=== PATIENT | female | born 1970 | race Caucasian/White ===

== ENCOUNTER → 2020-10-02 14:23 | Outpatient (BNVA) | payer MEDICAID, SELFPAY | PROVIDERS: Family Provider Family Medicine; PCP Family Medicine; Referring Provider Family Medicine; Visit Provider Podiatrist Foot & Ankle Surgery | DX: M79.672 Pain in left foot (principal); M79.671 Pain in right foot; M77.32 Calcaneal spur, left foot; M77.31 Calcaneal spur, right foot; M21.42 Flat foot [pes planus] (acquired), left foot | CPT/HCPCS: 73630 ==

== ENCOUNTER 2020-11-09 14:04 | Outpatient (CLI) | payer MEDICAID, SELFPAY | END 2020-11-09 14:05 | disposition home or self-care (01) | LOC: SPT 14:05 | PROVIDERS: Family Provider Family Medicine; PCP Family Medicine; Visit Provider Podiatrist Foot & Ankle Surgery | DX: Z46.89 Encounter for fitting and adjustment of other specified devices (principal); M72.2 Plantar fascial fibromatosis | CPT/HCPCS: 97760; L4397 ==

== ENCOUNTER 2021-01-18 17:11 | Outpatient (CLI) | payer MEDICAID, SELFPAY ==
--- NOTE | 2021-01-18 17:48 | USCV_ITS ---
Rosy Mims Age: 50 Gender: F : 1970 Exam Date: 01/18/2021 18:00 Ordering Phys: Lien Rodriguez Technologist: Exam Location: [facility] [place] Indication: RT LEG PAIN HISTORY: Lower extremity swelling. PROCEDURES: Venous duplex imaging was performed in only the right lower extremity. The following venous structures were evaluated: common femoral vein, profunda vein, proximal portion of the greater saphenous vein, superficial femoral vein, and the popliteal vein. In addition, the posterior tibial and peroneal trunk were evaluated. On the right side, the common femoral, superficial femoral, profunda femoral, popliteal, posterior tibial, greater saphenous veins and the peroneal trunk were identified and interrogated in the standard fashion. These veins were found to be easily compressible with spontaneous blood flow. No evidence of insufficiency or thrombus noted. FINDINGS: Normal 2-D Doppler and augmentation and compressibility throughout the lower extremity venous structures. Additional imaging through the proximal calf veins also reveals no thrombus. Limited evaluation of the greater saphenous vein is patent with no thrombus.. CONCLUSIONS No evidence of right lower extremity DVT. Rolando Ortiz MD (Electronically Signed) Final Date: 19 Jan 2021 12:31 S
== END 2021-01-18 17:12 | disposition home or self-care (01) ==
LOC: RAD 17:12
PROVIDERS: PCP Family Medicine; Visit Provider Registered Nurse
DX: Z91.81 History of falling (principal); M79.661 Pain in right lower leg; M79.89 Other specified soft tissue disorders; R23.3 Spontaneous ecchymoses
CPT/HCPCS: 93971

== ENCOUNTER 2021-01-19 13:22 | Outpatient (CLI) | payer MEDICAID, SELFPAY ==
--- NOTE | 2021-01-19 13:34 | XRR_ITS ---
PROCEDURE INFORMATION: Exam: XR Right Hip Exam date and time: 01/19/2021 2:07 PM Age: 50 years old Clinical indication: Pain and injury or trauma; Fall; Blunt trauma (contusions or hematomas); Hip pain; Right hip; Injury date: 1.5 weeks ago; Additional info: HX of falling/pain swelling of R lower leg/r hip pain TECHNIQUE: Imaging protocol: XR Right hip. Views: 1 view hip with pelvis when performed. COMPARISON: CT abdomen pelvis wo con [id number] 07/12/2018 3:21 AM FINDINGS: Bones/joints: Unremarkable. No acute fracture. Soft tissues: Unremarkable. XR/XR hip RT 2-3V wo/w pel* [id number] IMPRESSION: No acute findings.
--- NOTE | 2021-01-19 13:34 | XRR_ITS ---
PROCEDURE INFORMATION: Exam: XR Right Femur Exam date and time: 01/19/2021 2:07 PM Age: 50 years old Clinical indication: Pain and injury or trauma; Fall; Blunt trauma; Thigh or upper leg; Right; Injury date: 1.5 weeks ago; Additional info: HX of falling/pain swelling of R lower leg TECHNIQUE: Imaging protocol: XR Right femur. Views: 2 views. COMPARISON: MRI Knee w/o RIGHT* [id number] 07/02/2019 5:45 PM FINDINGS: Bones/joints: Unremarkable. No acute fracture. Soft tissues: Unremarkable. XR/XR femur RT min 2V* [id number] IMPRESSION: No acute findings.
== END 2021-01-19 13:23 | disposition home or self-care (01) ==
PROVIDERS: PCP Family Medicine; Visit Provider Registered Nurse
DX: Z91.81 History of falling (principal); M79.89 Other specified soft tissue disorders; M79.661 Pain in right lower leg; R23.3 Spontaneous ecchymoses; M25.551 Pain in right hip
CPT/HCPCS: 73502; 73552

== ENCOUNTER → 2021-11-02 14:52 | Outpatient (BNVA) | payer MEDICAID, SELFPAY | PROVIDERS: PCP Family Medicine; Visit Provider Dermatology | DX: R21 Rash and other nonspecific skin eruption (principal); Z79.899 Other long term (current) drug therapy | CPT/HCPCS: 87070; 87077; 87186 ==

== ENCOUNTER 2023-05-27 14:49 | Emergency (ER) | payer MEDICAID, SELFPAY ==
[2023-05-27 14:51] VITALS: BP 137/103; PULSE 126; RESP 21; TEMP 37.3; O2SAT 100; BMI 26.9
[2023-05-27 15:09] VITALS: BP 160/81; PULSE 106; RESP 22; O2SAT 92
--- NOTE | 2023-05-27 15:10 | ED_ITS ---
Documented by User: Juliocesar Greco DO 05/28/23 15:06 HPI - Back Pain/Injury General: Chief Complaint: Back Pain/Injury Stated Complaint: ABD PAIN Time Seen by Provider: 05/27/23 14:52 History of Present Illness: 53-year-old female with a history of right-sided back pain. No precipitating injury. She denies dysuria urgency or frequency no saddle paresthesias no weakness in her legs no fecal incontinence or urinary retention. Patient denies previous back surgery. She has had issues with back pain in the past MD elicited complaint: back pain Pertinent past history: prior back pain Onset (ago): hour(s) Timing: constant Severity: severe Similar Symptoms Previously: Yes Quality: sharp Location: lumbar spine Radiation: none Exacerbating factors: movement, supine positioning, sitting upright and walking Relieving factors: none Associated symptoms: Deny abdominal pain, arthralgias, chills, change in bowel habits, difficulty walking, dysuria, fatigue, fecal incontinence, fever(s), hematuria, myalgias, nausea, numbness, syncope, tingling/numbness/burning, urinary frequency, urinary urgency, vomiting or weakness Work related injury: No Review of Systems Const: Denies: fever(s), chills or fatigue ENMT: Denies: throat pain, ear or mastoid pain, nasal discharge or nasal congestion Card: Denies: chest pain or syncope Resp: Denies: dyspnea, productive cough or non-productive cough GI: Denies: abdominal pain, nausea, vomiting, fecal incontinence or change in bowel habits : Denies: dysuria, urinary frequency, urinary urgency or hematuria Skin/Breast: Denies: rash or pruritus Neuro: Denies: difficulty walking PFSH ED PFSH: Medical History Hypertension Surgical History H/O Spinal surgery Social History Smoking and tobacco status: current every day smoker Quit status (tobacco): considering quitting Second hand smoke exposure: No Smoking risk assessment/counseling performed?: Yes Alcohol intake: current Alcohol intake frequency: holidays/special occasions only Alcohol type: other Desire information about alcohol rehabilitation?: No Counseling given: Yes Substance/Drug Use: never Desire information about substance/drug rehabilitation?: No Counseling given: Yes Adopted: No Caregiver/support person: No Lives independently: Yes Household members: other Details: delores Housing: House Marital status: Single Number of children: 2 Number of grandchildren: 5 Highest education level completed: High School Graduate service: No Current occupational status: disabled Current occupational exposures/hazards: No Pets and animals: Yes Leisure activites: exercise, fishing, reading and volunteer work Sexually active: No Do you think of yourself as: Straight/Heterosexual Current gender identity: Female Balbina/Zoroastrianism: Taoist Special balbina needs: No Agree to transfusion: Yes Financial difficulty paying for basics: Very Hard Physical Exam Const: GENERAL APPEARANCE: cooperative ORIENTATION/CONSCIOUSNESS: Yes awake, Yes oriented to person, Yes oriented to place and Yes oriented to time HENMT: COMMON NORMALS: normocephalic, atraumatic and hearing grossly normal bilaterally HEAD & SCALP: normocephalic and atraumatic Resp: COMMON NORMALS: normal respiratory effort, No retractions, No use of accessory muscles and clear to auscultation bilaterally AUSCULTATION: clear to auscultation bilaterally Cardio: COMMON NORMALS: regular rate, regular rhythm and No murmurs present (Cardio) RATE: regular rate RHYTHM: regular rhythm GI: COMMON NORMALS: Soft to palpation and No hepatosplenomegaly present AUSCULTATION: Yes normoactive bowel sounds PALPATION: Yes Soft to palpation, No Tenderness to palpation present (GI), No Guarding due to palpation present (GI) and Yes No hepatosplenomegaly present Extremity: COMMON NORMALS: normal to inspection, capillary refill normal, no clubbing, cyanosis or edema, no calf tenderness and no pedal edema OTHER: Normal sensation lower extremities peripheral pulses good and lower extremities dorsum plantar flex strength 5 5 Neuro: SENSORIUM/ORIENTATION: Yes oriented to person, Yes oriented to place and Yes oriented to time Skin: COMMON NORMALS: no rashes or lesions noted GENERAL SKIN EXAM: no rashes or lesions noted Course Vital Signs: Vital signs: Vital Signs Temperature 99.2 F 05/27/23 14:51 Pulse Rate 126 H 05/27/23 20:03 Respiratory Rate 20 H 05/27/23 20:03 Blood Pressure 147/99 05/27/23 20:03 Pulse Oximetry 98 05/27/23 20:03 Oxygen Delivery Me thod Room Air 05/27/23 15:09 MDM - Back Pain/Injury Medical Decision Making Care signed out to Dr. Madera at change of shift. See final notes for diagnosis and disposition. Ms. Mims is a 53-year-old female checked out to me by Dr. Greco at shift change. This lady complains of right-sided back pain. Her white blood cell count was 17.6. Potassium is 3.3. Bicarb is 21. Pain is more controlled now. She is resting comfortably after morphine, Norflex, dexamethasone. CT of the abdomen pelvis including her hip shows no acute problems. There are prominent degenerative changes in the visualized lumbar spine. My nursing staff spoke with the patient's daughter. Evidently there was concern at 1 point for a potential abscess in her spine. This is not seen on CT scan today. We do not have MRI capability at this point. She does have some weakness in her gait on the right side on ambulation testing. This is chronic. She will need close outpatient follow-up. This was encouraged to the patient. She will return for worsening symptoms. Labs 05/27/23 15:33 05/27/23 15:33 Radiology Impressions Abdomen/Pelvis CT 05/27/23 16:01 IMPRESSION: 1. There are punctate nonobstructing calculi in upper pole calices of the left kidney. No obstructing urinary tract calculi. 2. The spleen is mildly enlarged. 3. There are prominent degenerative changes in the visualized spine. Multilevel lumbar broad-based disc osteophyte complexes. COMMENTS: Consistent with the [employer]'s Incidental Findings Committee white paper (J Am Desmond Radiol 2018): Any incidental renal lesion less than 1 cm or classified as too small to characterize, or any incidental cystic renal lesion characterized as simple-appearing, is likely benign. No follow-up imaging is recommended for these lesions per consensus recommendations based on imaging criteria. Laboratory Results WBC 17.66 10^3/uL (3.29-11.43) H 05/27/23 15:33 RBC 4.13 10^6/uL (3.85-5.65) 05/27/23 15:33 Hgb 11.90 g/dL (11.27-16.99) 05/27/23 15:33 Hct 38.1 % (36-47) 05/27/23 15:33 MCV 92.3 fl (85-98) 05/27/23 15:33 MCH 28.8 pg (27-33) 05/27/23 15:33 MCHC 31.2 g/dL (30-55) 05/27/23 15:33 RDW 14.9 % (12.1-15.1) 05/27/23 15:33 Plt Count 123 10^3/cmm (157-399) L 05/27/23 15:33 MPV 10.7 fL (7.4-10.4) H 05/27/23 15:33 Neut % (Auto) 90.0 % 05/27/23 15:33 Lymph % (Auto) 4.6 % 05/27/23 15:33 [place] % (Auto) 4.7 % 05/27/23 15:33 Eos % (Auto) 0.0 % 05/27/23 15:33 Baso % (Auto) 0.2 % 05/27/23 15:33 Neut # (Auto) 15.89 10^3/uL (1.8-7.7) H 05/27/23 15:33 Lymph # (Auto) 0.8 10^3/uL (0.8-4.8) 05/27/23 15:33 [place] # (Auto) 0.8 10^3/uL (0.2-0.9) 05/27/23 15:33 Eos # (Auto) 0.0 10^3/uL (0.0-0.8) 05/27/23 15:33 Baso # (Auto) 0.0 10^3/uL (0.0-0.1) 05/27/23 15:33 Nucleated RBC % (auto) 0 % 05/27/23 15:33 Nucleated RBCs # 0.0 /100WBC 05/27/23 15:33 Sodium 135 mmol/L (136-145) L 05/27/23 15:33 Potassium 3.3 mmol/L (3.5-5.1) L 05/27/23 15:33 Chloride 101 mmol/L (98-107) 05/27/23 15:33 Carbon Dioxide 21 mmol/L (22-29) L 05/27/23 15:33 Anion Gap 16.3 (5-19) 05/27/23 15:33 BUN 9 mg/dL (6-20) 05/27/23 15:33 Creatinine 0.3 mg/dL (0.5-0.9) L 05/27/23 15:33 GFR Calculation 233.6 mL/min (90-130) H 05/27/23 15:33 Glucose 125 mg/dL (65-115) H 05/27/23 15:33 Calculated Osmolality 280 mOsm/kg (285-295) L 05/27/23 15:33 Calcium 9.3 mg/dL (8.5-10.5) 05/27/23 15:33 Magnesium 1.7 mg/dL (1.7-2.3) 05/27/23 15:33 Total Bilirubin 1.0 mg/dL (0.15-1.2) 05/27/23 15:33 AST 14 U/L (0-32) 05/27/23 15:33 ALT 14 U/L (0-33) 05/27/23 15:33 Alkaline Phosphatase 61 U/L (35-105) 05/27/23 15:33 Total Protein 7.0 g/dL (6.6-8.7) 05/27/23 15:33 Albumin 3.9 g/dL (3.5-5.2) 05/27/23 15:33 Globulin 3.1 g/dL (1.3-4.6) 05/27/23 15:33 Lipase 14 U/L (13-60) 05/27/23 15:33 Urine Color Yellow (Yellow) 05/27/23 15:05 Urine Appearance Clear (CLEAR) 05/27/23 15:05 Urine pH 9 (5-7) H 05/27/23 15:05 Ur Specific [place] 1.015 (1.005-1.030) 05/27/23 15:05 Urine Protein Neg (Negative) 05/27/23 15:05 Urine Glucose (UA) Norm (Normal) 05/27/23 15:05 Urine Ketones Negative (Negative) 05/27/23 15:05 Urine Blood Neg (Negative) 05/27/23 15:05 Urine Nitrate Negative (Negative) 05/27/23 15:05 Urine Bilirubin Neg (Negative) 05/27/23 15:05 Prot Sulfosalicylic Acd Positive (Negative) 05/27/23 15:05 Urine Urobilinogen Norm mg/dL (Negative) 05/27/23 15:05 Ur Leukocyte Esterase Negative (Negative) 05/27/23 15:05 Urine Opiates Screen Negative ng/mL (Negative) 05/27/23 15:05 Ur Barbiturates Screen Negative ng/mL (Negative) 05/27/23 15:05 Ur Phencyclidine Scrn Negative ng/mL (Negative) 05/27/23 15:05 Ur Amphetamines Screen Negative ng/mL (Negative) 05/27/23 15:05 U Benzodiazepines Scrn Negative ng/mL (Negative) 05/27/23 15:05 Urine Cocaine Screen Negative ng/mL (Negative) 05/27/23 15:05 U Marijuana (THC) Screen Positive ng/mL (Negative) H 05/27/23 15:05 Discharge Plan Discharge Patient Disposition: Home Clinical Impression: Lumbar radiculopathy Condition: Stable Prescriptions: New ketorolac 10 mg tablet 10 mg PO TID PRN (Reason: pain) Qty: 10 0RF Medrol (Rey) 4 mg tablets,dose pack See Rx Instructions .ROUTE .COMPLEX Qty: 21 0RF Rx Instructions: orally per package directions No Action (DME) night splint See Rx Instructions .Route .MEDSUPPLY Qty: 1 0RF Rx Instructions: As directed mupirocin 2 % ointment 1 applic topical BID Qty: 22 2RF Rx Instructions: Apply to affected area(s) until healed. trazodone 150 mg tablet 150 mg PO DAILY ibuprofen 800 mg tablet 800 mg PO TID baclofen 20 mg tablet 20 mg PO TID duloxetine [Cymbalta] 60 mg capsule,delayed release(DR/EC) 60 mg PO BID clindamycin phosphate 1 % lotion 1 applic topical DAILY Qty: 60 2RF Rx Instructions: apply to face 1-2 times daily. triamcinolone acetonide 0.1 % ointment 1 applic topical BID Qty: 453.6 1RF Rx Instructions: Apply twice daily to red areas on the trunk and extremities for 2 weeks alternating with clobetasol clobetasol 0.05 % ointment 1 applic topical BID 14 Days Qty: 60 2RF Rx Instructions: to red areas on the trunk and extremities for 2 wks/mo alternating with triamcinolone calcipotriene [Dovonex] 0.005 % cream 1 applic topical BID Qty: 120 2RF Rx Instructions: Dovonex---rub in gently and completely metoprolol tartrate 25 mg tablet 25 mg PO BID Discharge Orders: Discharge ED (Routine); Ordered 05/27/23 Ordered By: Carlos Madera Referrals: Esther Lincoln DO [Primary Care Provider] - 1-3 days Patient Instructions: Lumbar Radiculopathy (ED), Opioid Safety, Pain Management Activity Restrictions/Additional Instructions: Medications as directed. Monitor your temperature twice daily. If you are running fever greater than 100, with your history, further outpatient imaging of your back such as MRI may be needed. Follow-up with your doctor this week. Coding Level of Care Code ED Track Service Worker for Chg Fwd Documented by User: Carlos Madera DO 05/27/23 19:47 HPI - Back Pain/Injury General: Chief Complaint: Back Pain/Injury Stated Complaint: ABD PAIN Time Seen by Provider: 05/27/23 14:52 History of Present Illness: 53-year-old female with a history of right-sided back pain [facility] ED PFSH: Medical History Hypertension Surgical History H/O Spinal surgery Social History Smoking and tobacco status: current every day smoker Quit status (tobacco): considering quitting Second hand smoke exposure: No Smoking risk assessment/counseling performed?: Yes Alcohol intake: current Alcohol intake frequency: holidays/special occasions only Alcohol type: other Desire information about alcohol rehabilitation?: No Counseling given: Yes Substance/Drug Use: never Desire information about substance/drug rehabilitation?: No Counseling given: Yes Adopted: No Caregiver/support person: No Lives independently: Yes Household members: other Details: guardan of grandkids Housing: House Marital status: Single Number of children: 2 Number of grandchildren: 5 Highest education level completed: High School Graduate service: No Current occupational status: disabled Current occupational exposures/hazards: No Pets and animals: Yes Leisure activites: exercise, fishing, reading and volunteer work Sexually active: No Do you think of yourself as: Straight/Heterosexual Current gender identity: Female Balbina/Zoroastrianism: Taoist Special balbina needs: No Agree to transfusion: Yes Financial difficulty paying for basics: Very Hard Course Vital Signs: Vital signs: Vital Signs Temperature 99.2 F 05/27/23 14:51 Pulse Rate 126 H 05/27/23 20:03 Respiratory Rate 20 H 05/27/23 20:03 Blood Pressure 147/99 05/27/23 20:03 Pulse Oximetry 98 05/27/23 20:03 Oxygen Delivery Me thod Room Air 05/27/23 15:09 MDM - Back Pain/Injury Medical Decision Making Ms. Mims is a 53-year-old female checked out to me by Dr. Greco at shift c [facility]. This lady complains of right-sided back pain. Her white blood cell count was 17.6. Potassium is 3.3. Bicarb is 21. Pain is more controlled now. She is resting comfortably after morphine, Norflex, dexamethasone. CT of the abdomen pelvis including her hip shows no acute problems. There are prominent degenerative changes in the visualized lumbar spine. My nursing staff spoke with the patient's daughter. Evidently there was concern at 1 point for a potential abscess in her spine. This is not seen on CT scan today. We do not have MRI capability at this point. She does have some weakness in her gait on the right side on ambulation testing. This is chronic. She will need close outpatient follow-up. This was encouraged to the patient. She will return for worsening symptoms. Labs 05/27/23 15:33 05/27/23 15:33 Radiology Impressions Abdomen/Pelvis CT 05/27/23 16:01 IMPRESSION: 1. There are punctate nonobstructing calculi in upper pole calices of the left kidney. No obstructing urinary tract calculi. 2. The spleen is mildly enlarged. 3. There are prominent degenerative changes in the visualized spine. Multilevel lumbar broad-based disc osteophyte complexes. COMMENTS: Consistent with the [employer] [employer]'s Incidental Findings Committee white paper (J Am Desmond Radiol 2018): Any incidental renal lesion less than 1 cm or classified as too small to characterize, or any incidental cystic renal lesion characterized as simple-appearing, is likely benign. No follow-up imaging is recommended for these lesions per consensus recommendations based on imaging criteria. Laboratory Results WBC 17.66 10^3/uL (3.29-11.43) H 05/27/23 15:33 RBC 4.13 10^6/uL (3.85-5.65) 05/27/23 15:33 Hgb 11.90 g/dL (11.27-16.99) 05/27/23 15:33 Hct 38.1 % (36-47) 05/27/23 15:33 MCV 92.3 fl (85-98) 05/27/23 15:33 MCH 28.8 pg (27-33) 05/27/23 15:33 MCHC 31.2 g/dL (30-55) 05/27/23 15:33 RDW 14.9 % (12.1-15.1) 05/27/23 15:33 Plt Count 123 10^3/cmm (157-399) L 05/27/23 15:33 MPV 10.7 fL (7.4-10.4) H 05/27/23 15:33 Neut % (Auto) 90.0 % 05/27/23 15:33 Lymph % (Auto) 4.6 % 05/27/23 15:33 [place] % (Auto) 4.7 % 05/27/23 15:33 Eos % (Auto) 0.0 % 05/27/23 15:33 Baso % (Auto) 0.2 % 05/27/23 15:33 Neut # (Auto) 15.89 10^3/uL (1.8-7.7) H 05/27/23 15:33 Lymph # (Auto) 0.8 10^3/uL (0.8-4.8) 05/27/23 15:33 [place] # (Auto) 0.8 10^3/uL (0.2-0.9) 05/27/23 15:33 Eos # (Auto) 0.0 10^3/uL (0.0-0.8) 05/27/23 15:33 Baso # (Auto) 0.0 10^3/uL (0.0-0.1) 05/27/23 15:33 Nucleated RBC % (auto) 0 % 05/27/23 15:33 Nucleated RBCs # 0.0 /100WBC 05/27/23 15:33 Sodium 135 mmol/L (136-145) L 05/27/23 15:33 Potassium 3.3 mmol/L (3.5-5.1) L 05/27/23 15:33 Chloride 101 mmol/L (98-107) 05/27/23 15:33 Carbon Dioxide 21 mmol/L (22-29) L 05/27/23 15:33 Anion Gap 16.3 (5-19) 05/27/23 15:33 BUN 9 mg/dL (6-20) 05/27/23 15:33 Creatinine 0.3 mg/dL (0.5-0.9) L 05/27/23 15:33 GFR Calculation 233.6 mL/min (90-130) H 05/27/23 15:33 Glucose 125 mg/dL (65-115) H 05/27/23 15:33 Calculated Osmolality 280 mOsm/kg (285-295) L 05/27/23 15:33 Calcium 9.3 mg/dL (8.5-10.5) 05/27/23 15:33 Magnesium 1.7 mg/dL (1.7-2.3) 05/27/23 15:33 Total Bilirubin 1.0 mg/dL (0.15-1.2) 05/27/23 15:33 AST 14 U/L (0-32) 05/27/23 15:33 ALT 14 U/L (0-33) 05/27/23 15:33 Alkaline Phosphatase 61 U/L (35-105) 05/27/23 15:33 Total Protein 7.0 g/dL (6.6-8.7) 05/27/23 15:33 Albumin 3.9 g/dL (3.5-5.2) 05/27/23 15:33 Globulin 3.1 g/dL (1.3-4.6) 05/27/23 15:33 Lipase 14 U/L (13-60) 05/27/23 15:33 Urine Color Yellow (Yellow) 05/27/23 15:05 Urine Appearance Clear (CLEAR) 05/27/23 15:05 Urine pH 9 (5-7) H 05/27/23 15:05 Ur Specific [place] 1.015 (1.005-1.030) 05/27/23 15:05 Urine Protein Neg (Negative) 05/27/23 15:05 Urine Glucose (UA) Norm (Normal) 05/27/23 15:05 Urine Ketones Negative (Negative) 05/27/23 15:05 Urine Blood Neg (Negative) 05/27/23 15:05 Urine Nitrate Negative (Negative) 05/27/23 15:05 Urine Bilirubin Neg (Negative) 05/27/23 15:05 Prot Sulfosalicylic Acd Positive (Negative) 05/27/23 15:05 Urine Urobilinogen Norm mg/dL (Negative) 05/27/23 15:05 Ur Leukocyte Esterase Negative (Negative) 05/27/23 15:05 Urine Opiates Screen Negative ng/mL (Negative) 05/27/23 15:05 Ur Barbiturates Screen Negative ng/mL (Negative) 05/27/23 15:05 Ur Phencyclidine Scrn Negative ng/mL (Negative) 05/27/23 15:05 Ur Amphetamines Screen Negative ng/mL (Negative) 05/27/23 15:05 U Benzodiazepines Scrn Negative ng/mL (Negative) 05/27/23 15:05 Urine Cocaine Screen Negative ng/mL (Negative) 05/27/23 15:05 U Marijuana (THC) Screen Positive ng/mL (Negative) H 05/27/23 15:05 All radiology interpretation(s) finalized by discharge Discharge Plan Discharge Patient Disposition: Home Clinical Impression: Lumbar radiculopathy Condition: Stable Prescriptions: New ketorolac 10 mg tablet 10 mg PO TID PRN (Reason: pain) Qty: 10 0RF Medrol (Rey) 4 mg tablets,dose pack See Rx Instructions .ROUTE .COMPLEX Qty: 21 0RF Rx Instructions: orally per package directions No Action (DME) night splint See Rx Instructions .Route .MEDSUPPLY Qty: 1 0RF Rx Instructions: As directed mupirocin 2 % ointment 1 applic topical BID Qty: 22 2RF Rx Instructions: Apply to affected area(s) until healed. trazodone 150 mg tablet 150 mg PO DAILY ibuprofen 800 mg tablet 800 mg PO TID baclofen 20 mg tablet 20 mg PO TID duloxetine [Cymbalta] 60 mg capsule,delayed release(DR/EC) 60 mg PO BID clindamycin phosphate 1 % lotion 1 applic topical DAILY Qty: 60 2RF Rx Instructions: apply to face 1-2 times daily. triamcinolone acetonide 0.1 % ointment 1 applic topical BID Qty: 453.6 1RF Rx Instructions: Apply twice daily to red areas on the trunk and extremities for 2 weeks alternating with clobetasol clobetasol 0.05 % ointment 1 applic topical BID 14 Days Qty: 60 2RF Rx Instructions: to red areas on the trunk and extremities for 2 wks/mo alternating with triamcinolone calcipotriene [Dovonex] 0.005 % cream 1 applic topical BID Qty: 120 2RF Rx Instructions: Dovonex---rub in gently and completely metoprolol tartrate 25 mg tablet 25 mg PO BID Discharge Orders: Discharge ED (Routine); Ordered 05/27/23 Ordered By: Carlos Madera Referrals: Esther Lincoln DO [Primary Care Provider] - 1-3 days Patient Instructions: Lumbar Radiculopathy (ED), Opioid Safety, Pain Management Activity Restrictions/Additional Instructions: Medications as directed. Monitor your temperature twice daily. If you are running fever greater than 100, with your history, further outpatient imaging of your back such as MRI may be needed. Follow-up with your doctor this week. Coding Level of Care Code ED Track Service Worker for Dre Mendiola
--- NOTE | 2023-05-27 15:11 | PC.NURSE ---
pt currently crying uncontrollably and extremely restless. pt unable to answer any questions without crying.
[2023-05-27 15:12] LABS: Add Urine Microscopic? NO; Charge for UA Resulting for Rev
[2023-05-27 15:16] LABS: Bilirubin Urine Neg (Negative); Blood Urine Neg (Negative); Glucose Urine UA Norm (Normal); Ketones Urine Negative (Negative); Nitrate Urine Negative (Negative); Protein Urine Neg (Negative); Specific Gravity, Urine 1.015 (1.005-1.030); Urine Appearance Clear (CLEAR); Urine Color Yellow (Yellow); pH Urine 9 (5-7)
[2023-05-27 15:17] LABS: Leukocyte Esterase Urine Negative (Negative); Sulfosalicylic Acid Urine Positive (Negative); Urobilinogen Urine Norm (Negative)
[2023-05-27] MEDS: orphenadrine 30 mg/mL Inj 2 mL 60 MG IVP (15:19)
[2023-05-27] MEDS: ketorolac 30 mg/mL INJ IVP (15:19)
[2023-05-27] MEDS: dexamethasone 10 mg/mL INJ IVP (15:23)
[2023-05-27 15:40] LABS: Basophils % 0.2 %; Hematocrit 38.1 % (36-47); Lymphocytes # 0.8 10^3/uL (0.8-4.8); Lymphocytes % 4.6 %; Mean Corpuscular HGB Conc 31.2 g/dL (30-55); Mean Corpuscular Hemoglobin 28.8 pg (27-33); Mean Corpuscular Volume 92.3 fl (85-98); Mean Platelet Volume 10.7 fL (7.4-10.4); Monocytes # 0.8 10^3/uL (0.2-0.9); Monocytes % 4.7 %; Neutrophils # 15.89 10^3/uL (1.8-7.7); Nucleated Red Blood Cells % 0 %; Platelet Count 123 10^3/cmm (157-399); Red Blood Count 4.13 10^6/uL (3.85-5.65); Red Cell Distribution Width 14.9 % (12.1-15.1); White Blood Count 17.66 10^3/uL (3.29-11.43)
[2023-05-27 16:01] LABS: Alanine Aminotransferase 14 U/L (0-33); Albumin Level 3.9 g/dL (3.5-5.2); Alkaline Phosphatase 61 U/L (35-105); Blood Urea Nitrogen 9 mg/dL (6-20); Calcium 9.3 mg/dL (8.5-10.5); Carbon Dioxide 21 mmol/L (22-29); Chloride 101 mmol/L (98-107); Globulin 3.1 g/dL (1.3-4.6); Glomerular Filtration Rate 233.6 mL/min (90-130); Glucose 125 mg/dL (65-115); Lipase 14 U/L (13-60); Magnesium 1.7 mg/dL (1.7-2.3); Osmolality Calculated 280 mOsm/kg (285-295); Sodium 135 mmol/L (136-145)
--- NOTE | 2023-05-27 16:01 | ECG_ITS ---
[facility] Test Date: 2023-05-27 Pat Name: Rosy Mims Department: Room: Gender: Female Shredding Specialist: : 1970 Requested By: Juliocesar Arriaga Order Number: [id number] Alan MD: Tyler Jefferson M.D. Measurements Intervals [place] Rate: 84 P: 69 WI: 134 QRS: 77 QRSD: 79 T: 58 QT: 343 QTc: 407 Interpretive Statements SINUS RHYTHM WITH MARKED SINUS ARRHYTHMIA Compared to ECG 07/12/2018 02:51:19 Junctional rhythm no longer present Myocardial infarct finding no longer present Electronically Signed On 05-27-2023 20:29:50 CDT by Tyler Jefferson M.D. [email or web address]
--- NOTE | 2023-05-27 16:01 | CTR_ITS ---
PROCEDURE INFORMATION: Exam: CT Abdomen And Pelvis Without Contrast Exam date and time: 05/27/2023 4:25 PM Age: 53 years old Clinical indication: Abdominal pain; Flank; Right; Additional info: Flank pain TECHNIQUE: Imaging protocol: Computed tomography of the abdomen and pelvis without contrast. Radiation optimization: All CT scans at this facility use at least one of these dose optimization techniques: automated exposure control; mA and/or kV adjustment per patient size (includes targeted exams where dose is matched to clinical indication); or iterative reconstruction. REPORTING DATA: Count of CT and Cardiac NM exams in prior 12 months: This patient has received 0 known CTs and 0 known cardiac nuclear medicine studies in the 12 months prior to the current study. COMPARISON: CT abdomen pelvis wo con [id number] 07/12/2018 3:21 AM RADIATION DOSE METRICS: Total DLP (mGy-cm): 441.23 FINDINGS: Liver: Normal. No mass. Gallbladder and bile ducts: Normal. No calcified stones. No ductal dilation. Pancreas: Normal. No ductal dilation. Spleen: The spleen is mildly enlarged measuring 13.6 cm. Adrenal glands: Normal. No mass. Kidneys and ureters: 16 mm cyst at the superior pole of the left kidney has benign features. Follow-up is not necessary. There are punctate nonobstructing calculi in upper pole calices of the left kidney. No obstructing urinary tract calculi. No hydronephrosis or hydroureter. Stomach and bowel: Unremarkable. No obstruction. No mucosal thickening. Appendix: No evidence of appendicitis. Intraperitoneal space: Unremarkable. No free air. No significant fluid collection. Vasculature: There is scattered atherosclerotic plaque in the aorta and iliac arteries. Lymph nodes: Unremarkable. No enlarged lymph nodes. Urinary bladder: Unremarkable as visualized. Reproductive: The uterus is not visualized, consistent with hysterectomy. Bones/joints: There are prominent degenerative changes in the visualized spine. Multilevel lumbar broad-based disc osteophyte complexes. Soft tissues: Unremarkable. CT/CT kidney stone [id number] IMPRESSION: 1. There are punctate nonobstructing calculi in upper pole calices of the left kidney. No obstructing urinary tract calculi. 2. The spleen is mildly enlarged. 3. There are prominent degenerative changes in the visualized spine. Multilevel lumbar broad-based disc osteophyte complexes. COMMENTS: Consistent with the [employer]'s Incidental Findings Committee white paper (J Am Desmond Radiol 2018): Any incidental renal lesion less than 1 cm or classified as too small to characterize, or any incidental cystic renal lesion characterized as simple-appearing, is likely benign. No follow-up imaging is recommended for these lesions per consensus recommendations based on imaging criteria.
[2023-05-27 16:03] LABS: Anion Gap 16.3 (5-19); Aspartate Amino Transferase 14 U/L (0-32); Potassium 3.3 mmol/L (3.5-5.1)
[2023-05-27 17:39] LABS: Amphetamines Screen Urine Negative (Negative); Barbiturates Screen Urine Negative (Negative); Benzodiazepines Screen Urine Negative (Negative); Cocaine Screen Urine Negative (Negative); Opiate Screen Urine Negative (Negative); PCP Screen Urine Negative (Negative); THC Screen Urine Positive (Negative)
[2023-05-27 17:41] VITALS: RESP 24; O2SAT 99
[2023-05-27] MEDS: morphine 4 mg/mL SDV 1 mL IVP (17:41)
[2023-05-27 20:03] VITALS: BP 147/99; PULSE 126; RESP 20; O2SAT 98
== END 2023-05-27 20:00 | disposition home or self-care (01) ==
PROVIDERS: Family Medicine; Emergency Provider Emergency Medicine; PCP Family Medicine
DX: M54.16 Radiculopathy, lumbar region (principal); N20.0 Calculus of kidney; I10 Essential (primary) hypertension; F17.210 Nicotine dependence, cigarettes, uncomplicated
CPT/HCPCS: 36415; 51701; 74176; 80053; 80306; 81003; 83690; 83735; 85025; 87040; 93005; 96374; 96375; 99285; J1100; J1885; J2270; J2360

== ENCOUNTER 2023-10-10 12:51 | Inpatient (IN) | payer MEDICAID, SELFPAY ==
[2023-10-10] VITALS (24 sets, daily range): BP systolic 113–144; BP diastolic 68–104; PULSE 82–122; RESP 16–37; TEMP 36.7–36.8; O2SAT 90–100; BMI 30.7
--- NOTE | 2023-10-10 12:57 | ED_ITS ---
HPI - Back Pain/Injury 2 General: Chief Complaint: Back Pain/Injury Stated Complaint: Back Pain Time Seen by Provider: 10/10/23 12:55 Source: patient Mode of arrival: ambulatory Limitations: no limitations History of Present Illness: Patient is a 53-year-old female presents to ED today with complaint of severe back pain. Patient states back pain began 1 to 2 days ago. She states approximately 6 to 7 months ago she had surgery on her back in [place]. She states something about a fluid pocket pushing on the nerve. When asked to clarify or at least distinguish whether this was an abscess or not she states she does not believe it was infectious in nature. There is documentation by another ED provider that she does have a history of an epidural abscess (?). We will try to obtain records. Ultimately she states that back pain flared up 1 to 2 days ago and has been excruciating. She reports pain across her lower back with radiation down into her right buttock and down her right leg. She does report pain into her groin region. She states she is having normal bowel movements but does report a great sense of urinary urgency but when she sits to go she often times cannot go but then other times she tells me that she dribbles on herself and I do not even realize I am going . Patient has not been running fevers. She describes her pain as burning. She is not having any abdominal pain. No flank pain. PMH significant for anxiety, depression, HTN, and insomnia. MD elicited complaint: back pain Pertinent past history: prior back pain Onset (ago): day(s) Timing: constant Severity: severe Pain scale (0-10): 10 Similar Symptoms Previously: Yes Quality: burning Location: lumbar spine and right lower back Radiation: groin, right upper leg and right leg below the knee Relieving factors: none Associated symptoms: Reports difficulty walking and urinary urgency; Deny abdominal pain, chills, dysuria, fatigue, fever(s), hematuria, nausea or vomiting Work related injury: No Review of Systems 2 Const: Denies: fever(s), chills, body aches, fatigue or malaise Card: Denies: chest pain Resp: Denies: dyspnea GI: Denies: abdominal pain, nausea, vomiting or diarrhea : Reports: difficulty voiding, urinary urgency and urinary incontinence; Denies: flank pain, dysuria, urinary frequency, hematuria, vaginal odor, vaginal bleeding or pelvic pain Musc: Reports: back pain and extremity pain; Denies: neck pain, extremity swelling, joint pain or joint swelling Skin/Breast: Denies: rash Neuro: Reports: numbness in extremities, weakness in extremities and difficulty walking; Denies: headache(s), lack of coordination, dizziness, vertigo, confusion, Slurred speech present or difficulty communicating thoughts PFSH ED 2 PFSH: Medical History Hypertension Surgical History H/O Spinal surgery Social History Smoking and tobacco/nicotine status: current every day tobacco/nicotine user Quit status (tobacco/nicotine): considering quitting Second hand smoke exposure: No Alcohol intake: current Alcohol intake frequency: holidays/special occasions only Alcohol type: other Substance/Drug Use: never Adopted: No Caregiver/support person: No Lives independently: Yes Household members: other Details: [employer] Housing: House Marital status: Single Number of children: 2 Number of grandchildren: 5 Highest education level completed: High School Graduate service: No Current occupational status: disabled Current occupational exposures/hazards: No Pets and animals: Yes Leisure activites: exercise, fishing, reading and volunteer work Sexually active: No Do you think of yourself as: Straight/Heterosexual Current gender identity: Female Balbina/Anabaptism: Sikh Special balbina needs: No Agree to transfusion: Yes Physical Exam 2 Const: COMMON NORMALS: average body habitus, patient oriented x3, no limitations, alert and well nourished GENERAL APPEARANCE: in distress (pt is rolling all over the bed, very antsy, crying hysterically, pacing) O RIENTATION/CONSCIOUSNESS: Yes awake, Yes oriented to person, Yes oriented to place and Yes oriented to time Eye: COMMON NORMALS: no scleral icterus Neck/C-Spine: GENERAL: Yes normal visual inspection CERVICAL SPINE: Yes cervical ROM normal, No Cervical spine tenderness and No Paracervical muscle tenderness Resp: COMMON NORMALS: normal respiratory effort and clear to auscultation bilaterally AUSCULTATION: clear to auscultation bilaterally Cardio: COMMON NORMALS: regular rhythm RATE: tachycardic RHYTHM: regular rhythm GI: COMMON NORMALS: Normal to inspection, nondistended, normoactive bowel sounds present, Soft to palpation, non-tender, No hepatosplenomegaly present and no masses PALPATION: Yes Soft to palpation and Yes No hepatosplenomegaly present : COMMON NORMALS: Yes no CVA tenderness BLADDER/KIDNEY EXAM: Yes no CVA tenderness Back/Pelvis: COMMON NORMALS: no CVA tenderness THORACIC SPINE/UPPER BACK: N o thoracic spinal tenderness, No paraspinal muscle tenderness and No paraspinal muscle spasm LUMBAR SPINE/LOWER BACK: Yes ROM limited, Yes lumbar spinal tenderness and Yes other soft tissue findings (previous lumbar surgical incision) PELVIS: Yes buttock abnormal Buttock abnormal laterality: right Right buttock abnormal details: tenderness SACRUM: no tenderness COCCYX: n o tenderness OTHER: redness almost rash like area over buttocks that patients states is from her constantly rubbing area throughout the night; does not appear cellulitic; pt constantly grabs at her lower back, R buttock, and groins complaining of burning sensations Extremity: COMMON NORMALS: normal to inspection, full ROM, capillary refill normal, no clubbing, cyanosis or edema, no calf tenderness and no pedal edema GENERAL: Yes normal exam except as noted Neuro: COMMON NORMALS: patient oriented x3 and moves all extremities S ENSORIUM/ORIENTATION: Yes alert, Yes oriented to person, Yes oriented to place and Yes oriented to time GAIT: Yes Other gait observations present (pt is pacing around her room, R leg seems to drag a bit) Course 2 Consultations: Consultation #1: Dr. Vargas-recommends admission to hospitalist and he will consult and potentially take to OR tomorrow Vital Signs: Vital signs: Vital Signs Temperature 98.2 F 10/10/23 13:09 Pulse Rate 102 H 10/10/23 15:09 Respiratory Rate 16 10/10/23 15:09 Blood Pressure 113/76 10/10/23 15:09 Pulse Oximetry 90 10/10/23 15:09 Oxygen Delivery Me thod Room Air 10/10/23 13:09 MDM - Back Pain/Injury Medical Decision Making Patient is a 53-year-old female here for complaints of severe lower back pain radiating into her right buttock and down her leg in addition to urinary incontinence. She feels like symptoms are similar to when she had surgery on her back 6 to 7 months ago in [place]. We have contacted [facility] and they are supposed to be faxing records however this has been prolonged and at this time we still have yet to receive them. Patient's physical examination is difficult secondary to her not able to sit still long enough. She appears extremely uncomfortable. We have given her Dexamethasone, Toradol, Morphine, and Dilaudid. At this time her oxygen saturations are not tolerating additional pain medications. I was able to get an MRI on her which I discussed results with Dr. Vargas. He recommended admission to hospitalist and he will take to the OR potentially tomorrow. I spoke to Dr. Gallardo who will accept patient. I spoken to Dr. Medrano in regards to patient's case who has followed along with her care and agrees with care plan here. Labs 10/10/23 13:49 10/10/23 15:24 Radiology Impressions Abdomen/Pelvis CT 10/10/23 13:28 IMPRESSION: No acute findings or significant interval change. Chest X-Ray 10/10/23 16:12 IMPRESSION: No acute findings. Laboratory Results WBC 13.77 10^3/uL (3.29-11.43) H 10/10/23 13:49 RBC 3.73 10^6/uL (3.85-5.65) L 10/10/23 13:49 Hgb 11.30 g/dL (11.27-16.99) 10/10/23 13:49 Hct 34.3 % (36-47) L 10/10/23 13:49 MCV 92.0 fl (85-98) 10/10/23 13:49 MCH 30.3 pg (27-33) 10/10/23 13:49 MCHC 32.9 g/dL (30-55) 10/10/23 13:49 RDW 14.4 % (12.1-15.1) 10/10/23 13:49 Plt Count 146 10^3/cmm (157-399) L 10/10/23 13:49 MPV 11.8 fL (7.4-10.4) H 10/10/23 13:49 Neut % (Auto) 77.9 % 10/10/23 13:49 Lymph % (Auto) 13.3 % 10/10/23 13:49 Crenshaw % (Auto) 7.9 % 10/10/23 13:49 Eos % (Auto) 0.2 % 10/10/23 13:49 Baso % (Auto) 0.3 % 10/10/23 13:49 Neut # (Auto) 10.72 10^3/uL (1.8-7.7) H 10/10/23 13:49 Lymph # (Auto) 1.8 10^3/uL (0.8-4.8) 10/10/23 13:49 Crenshaw # (Auto) 1.1 10^3/uL (0.2-0.9) H 10/10/23 13:49 Eos # (Auto) 0.0 10^3/uL (0.0-0.8) 10/10/23 13:49 Baso # (Auto) 0.0 10^3/uL (0.0-0.1) 10/10/23 13:49 Nucleated RBC % (auto) 0 % 10/10/23 13:49 Nucleated RBCs # 0.0 /100WBC 10/10/23 13:49 Sodium 138 mmol/L (136-145) 10/10/23 15:24 Potassium 3.4 mmol/L (3.5-5.1) L 10/10/23 15:24 Chloride 104 mmol/L (98-107) 10/10/23 15:24 Carbon Dioxide 22 mmol/L (22-29) 10/10/23 15:24 Anion Gap 15.4 (5-19) 10/10/23 15:24 BUN 11 mg/dL (6-20) 10/10/23 15:24 Creatinine 0.4 mg/dL (0.5-0.9) L 10/10/23 15:24 GFR Calculation 167.6 mL/min (90-130) H 10/10/23 15:24 Glucose 108 mg/dL (65-115) 10/10/23 15:24 Calculated Osmolality 286 mOsm/kg (285-295) 10/10/23 15:24 Calcium 9.4 mg/dL (8.5-10.5) 10/10/23 15:24 Total Bilirubin 1.1 mg/dL (0.15-1.2) 10/10/23 15:24 AST 22 U/L (0-32) 10/10/23 15:24 ALT 13 U/L (0-33) 10/10/23 15:24 Alkaline Phosphatase 69 U/L (35-105) 10/10/23 15:24 C-Reactive Protein 70.0 mg/L (0.0-4.9) H 10/10/23 15:24 Total Protein 6.8 g/dL (6.6-8.7) 10/10/23 15:24 Albumin 3.9 g/dL (3.5-5.2) 10/10/23 15:24 Globulin 2.9 g/dL (1.3-4.6) 10/10/23 15:24 Urine Color Lilia (Yellow) 10/10/23 16:40 Urine Appearance Clear (CLEAR) 10/10/23 16:40 Urine pH 7 (5-7) 10/10/23 16:40 Ur Specific Suring 1.005 (1.005-1.030) 10/10/23 16:40 Urine Protein 1+ (Negative) H 10/10/23 16:40 Urine Glucose (UA) Norm (Normal) 10/10/23 16:40 Urine Ketones 1+ (Negative) H 10/10/23 16:40 Urine Blood 2+ (Negative) H 10/10/23 16:40 Urine Nitrate Negative (Negative) 10/10/23 16:40 Urine Bilirubin Neg (Negative) 10/10/23 16:40 Urine Urobilinogen 1 mg/dL (Negative) H 10/10/23 16:40 Ur Leukocyte Esterase Negative (Negative) 10/10/23 16:40 Amorphous Sediment Not Reportable 10/10/23 16:40 Urine Opiates Screen Positive ng/mL (Negative) H 10/10/23 16:40 Ur Barbiturates Screen Negative ng/mL (Negative) 10/10/23 16:40 Ur Phencyclidine Scrn Negative ng/mL (Negative) 10/10/23 16:40 Ur Amphetamines Screen Positive ng/mL (Negative) H 10/10/23 16:40 U Benzodiazepines Scrn Negative ng/mL (Negative) 10/10/23 16:40 Urine Cocaine Screen Negative ng/mL (Negative) 10/10/23 16:40 U Marijuana (THC) Screen Positive ng/mL (Negative) H 10/10/23 16:40 All radiology interpretation(s) finalized by discharge Discharge Plan Discharge Patient Disposition: Admitted As Inpatient Clinical Impression: Cauda equina compression Condition: Stable Coding Level of Care Code ED Pediatric Critical Care Nurse for Dre Mendiola
--- NOTE | 2023-10-10 13:28 | MR_ITS ---
WS: [id number] MRI LUMBAR SPINE NONCONTRAST HISTORY: severe back pain, urinary retention/incontinence COMPARISON: 03/02/2017, CT 05/27/2023 TECHNIQUE: Sagittal and axial multisequence imaging is submitted. Prior cervical fusion. T2 and T4 hemangiomas are stable. Straightening of the normal lumbar lordosis. There is significant motion compromise in this examinati on. Disc spaces are mildly narrowed. Osteophyte involvement of all vertebral bodies. No increased sig nal within the vertebral bodies. There is slight increased signal within T4 and T5 which may be an ar tifact. Postsurgical changes noted posterior to the thecal sac at C4-5. Conus terminates normally at L1. Osteophyte and central disc protrusion at T11-12 with mild contact on the ventral thoracic cord. Mild progression since 2017. L1-L2: Annular disc bulging. LEFT proximal foraminal disc protrusion. Mild disc contact on the catherine sing LEFT L2 nerve root. L2-L3: Mild disc bulging. L3-L4: Diffuse annular disc bulging with an asymmetric disc protrusion within the LEFT foramen. Facet joint arthritis. Moderate to severe LEFT foraminal stenosis. L4-L5: Postsurgical changes are noted beginning at the L3-4 disc level and extending inferiorly. Ther e is a laminectomy defect on the LEFT. CSF is becoming obliterated within the central canal. There is a central disc protrusion contacting the ventral thecal sac. There is at least moderate central sten osis. Bilateral foraminal stenosis. Complete effacement of fat within the RIGHT foramen. L5-S1: Diffuse annular disc bulging with facet disease. Moderate bilateral foraminal stenosis. Quality this study is compromised by motion artifact. Patient was unable to remain still for this exa mination due to pain. IMPRESSION: 1. Quality of this examination is significantly compromised by motion. 2. Decompression surgery noted at the L4-5 level. There is a large amount of soft tissue extending i nto the thecal sac. Without IV contrast and better imaging quality cannot determine the extent of dis ease. 3. L4-5: There is at least moderate if not higher central stenosis with bilateral foraminal stenosis . Severe RIGHT foraminal stenosis. Some of the changes within the central canal causing stenosis may be postoperative gliosis and scarring. 4. L5-S1: Moderate bilateral foraminal stenosis. 5. L3-4: Asymmetric disc protrusion within the LEFT foramen resulting in moderate to severe LEFT for aminal stenosis. 6. Small proximal LEFT foraminal disc protrusion contacting the traversing LEFT L2 nerve root. 7. There is an additional small disc osteophyte at T11-12 with very slight contact on the ventral co rd.
--- NOTE | 2023-10-10 13:28 | CTR_ITS ---
PROCEDURE INFORMATION: Exam: CT Abdomen And Pelvis With Contrast Exam date and time: 10/10/2023 4:16 PM Age: 53 years old Clinical indication: Abdominal pain; Other: Lower abd anterior and posterior; Prior surgery; Surgery date: 6+ months; Surgery type: Hyst; Additional info: Back pain TECHNIQUE: Imaging protocol: Computed tomography of the abdomen and pelvis with contrast. Radiation optimization: All CT scans at this facility use at least one of these dose optimization techniques: automated exposure control; mA and/or kV adjustment per patient size (includes targeted exams where dose is matched to clinical indication); or iterative reconstruction. Contrast material: OMNI 350; Contrast volume: 100 ml; Contrast route: INTRAVENOUS (IV); COMPARISON: CT kidney stone [id number] 05/27/2023 4:25 PM RADIATION DOSE METRICS: Total DLP (mGy-cm): 555 FINDINGS: Liver: No acute findings Gallbladder and bile ducts: No acute findings. Pancreas: No ductal dilation. Spleen: No splenomegaly. Adrenal glands: No mass. Kidneys and ureters: Punctate nonobstructing left renal calculi. Stomach and bowel: No obstruction. Appendix: No evidence of appendicitis. Intraperitoneal space: No free air. No significant fluid collection. Vasculature: No abdominal aortic aneurysm. Lymph nodes: No enlarged lymph nodes. Urinary bladder: Incompletely distended. Reproductive: No acute findings. Bones/joints: Degenerative changes without acute findings. Soft tissues: No acute findings. CT/CT abdomen pelvis w con* [id number] IMPRESSION: No acute findings or significant interval change.
[2023-10-10] MEDS: ketorolac 30 mg/mL INJ IVP (13:38)
[2023-10-10] MEDS: dexamethasone 10 mg/mL INJ 8 MG IVP (13:39)
[2023-10-10] MEDS: morphine 4 mg/mL SDV 1 mL IVP (13:41)
[2023-10-10 14:29] LABS: Basophils % 0.3 %; Eosinophils % 0.2 %; Hematocrit 34.3 % (36-47); Lymphocytes # 1.8 10^3/uL (0.8-4.8); Lymphocytes % 13.3 %; Mean Corpuscular HGB Conc 32.9 g/dL (30-55); Mean Corpuscular Hemoglobin 30.3 pg (27-33); Mean Platelet Volume 11.8 fL (7.4-10.4); Monocytes # 1.1 10^3/uL (0.2-0.9); Monocytes % 7.9 %; Neutrophils # 10.72 10^3/uL (1.8-7.7); Neutrophils % 77.9 %; Nucleated Red Blood Cells % 0 %; Platelet Count 146 10^3/cmm (157-399); Red Blood Count 3.73 10^6/uL (3.85-5.65); Red Cell Distribution Width 14.4 % (12.1-15.1); White Blood Count 13.77 10^3/uL (3.29-11.43)
[2023-10-10] MEDS: HYDROmorphone 1 mg/mL INJ 1 mL 0.5 MG IVP (15:05)
[2023-10-10 15:51] LABS: Alanine Aminotransferase 13 U/L (0-33); Albumin Level 3.9 g/dL (3.5-5.2); Alkaline Phosphatase 69 U/L (35-105); Anion Gap 15.4 (5-19); Aspartate Amino Transferase 22 U/L (0-32); Blood Urea Nitrogen 11 mg/dL (6-20); Calcium 9.4 mg/dL (8.5-10.5); Carbon Dioxide 22 mmol/L (22-29); Chloride 104 mmol/L (98-107); Globulin 2.9 g/dL (1.3-4.6); Glomerular Filtration Rate 167.6 mL/min (90-130); Glucose 108 mg/dL (65-115); Osmolality Calculated 286 mOsm/kg (285-295); Potassium 3.4 mmol/L (3.5-5.1); Sodium 138 mmol/L (136-145); Total Bilirubin 1.1 mg/dL (0.15-1.2); Total Protein 6.8 g/dL (6.6-8.7)
--- NOTE | 2023-10-10 16:12 | XRR_ITS ---
PROCEDURE INFORMATION: Exam: XR Chest Exam date and time: 10/10/2023 4:22 PM Age: 53 years old Clinical indication: Other: Back pain TECHNIQUE: Imaging protocol: Radiologic exam of the chest. Views: 1 view. COMPARISON: CT abdomen pelvis w con* [id number] 10/10/2023 4:16 PM FINDINGS: Lungs: No focal consolidation. Pleural spaces: No pleural effusion. No pneumothorax. Heart/Mediastinum: No cardiomegaly. Bones/joints: No acute findings. XR/XR chest 1V portable [id number] IMPRESSION: No acute findings.
--- NOTE | 2023-10-10 16:12 | ECG_ITS ---
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 Measurements Intervals Noble Rate: 112 P: 64 TX: 129 QRS: 37 QRSD: 81 T: 59 QT: 315 QTc: 431 Interpretive Statements SINUS TACHYCARDIA Compared to ECG 05/27/2023 16:18:35 Sinus rhythm no longer present Sinus arrhythmia no longer present Electronically Signed On 10-10-2023 17:26:11 FINANCE ADMIN by Tyler Jefferson M.D. [id number]
[2023-10-10] MEDS: iohexol 350 mg/mL 500 mL Btl (per mL) IV (16:29)
--- NOTE | 2023-10-10 16:48 | PM.HP ---
Providers/Chief Complaint Primary Care Provider: Esther Lincoln DO Chief Complaint: Back Pain History of Present Illness Rosy Mims is a 53 year old female who had surgery for her back pain in [place] couple months ago presented to hospital for worsening back pain new incontinence. Patient in the ER has been tested for marijuana methamphetamine and opioids. She appears very anxious complaining of pain however Is still she is standing up complaining of back pain radiating towards her knee. Extremely anxious. Hemodynamic stable. Patient stating that she is anxious about the parrot that she has at home She lives alone. Endorses drinking alcohol/whiskey on daily basis she drinks 3-4 shots every day, smokes every day. MRI done, showing signs of no compression in signs of possible cauda equina Dr. Vargas will operate on her tomorrow morning Review of Systems Const: Denies: fever(s) Eyes: Denies: change in vision ENMT: Denies: odynophagia Card: Denies: chest pain Resp: Denies: dyspnea GI: Denies: abdominal pain Musc: Reports: back pain Skin/Breast: Reports: rash Medications/Allergies Home Medications Medication Instructions Recorded Confirmed Last Taken Type baclofen 20 mg tablet 20 mg PO TID 10/02/20 05/27/23 Unknown History duloxetine 60 mg capsule,delayed 60 mg PO BID 10/02/20 05/27/23 Unknown History release (Cymbalta) ibuprofen 800 mg tablet 800 mg PO TID 10/02/20 05/27/23 Unknown History trazodone 150 mg tablet 150 mg PO DAILY 10/02/20 05/27/23 Unknown History night splint #1 ea 11/09/20 05/27/23 Unknown Rx mupirocin 2 % topical ointment 1 applic topical BID #22 grams 11/02/21 05/27/23 Unknown Rx calcipotriene 0.005 % topical 1 applic topical BID #120 grams 01/13/22 05/27/23 Unknown Rx cream (Dovonex) clobetasol 0.05 % topical ointment 1 applic topical BID 2 weeks #60 01/13/22 05/27/23 Unknown Rx grams triamcinolone acetonide 0.1 % 1 applic topical BID #453.6 grams 01/13/22 05/27/23 Unknown Rx topical ointment clindamycin phosphate 1 % lotion 1 applic topical DAILY #60 mL 02/14/22 05/27/23 Unknown Rx ketorolac 10 mg tablet 10 mg PO TID PRN pain #10 tabs 05/27/23 Unknown Rx methylprednisolone 4 mg tablets in See Rx Instructions PO .COMPLEX 05/27/23 Unknown Rx a dose pack (Medrol (Rey)) #21 ea metoprolol tartrate 25 mg tablet 25 mg PO BID 05/27/23 05/27/23 Unknown History Allergies Allergy/AdvReac Type Severity Reaction Status Date / Time pregabalin [From Lyrica] Allergy Mild rash Verified 05/27/23 15:14 codeine Allergy itching Verified 05/27/23 15:14 PFSH Acute PFSH: Medical History Hypertension Surgical History H/O Spinal surgery Social History Smoking and tobacco/nicotine status: current every day tobacco/nicotine user Quit status (tobacco/nicotine): considering quitting Second hand smoke exposure: No Alcohol intake: current Alcohol intake frequency: holidays/special occasions only Alcohol type: other Substance/Drug Use: never Adopted: No Caregiver/support person: No Lives independently: Yes Household members: other Details: [employer] Housing: House Marital status: Single Number of children: 2 Number of grandchildren: 5 Highest education level completed: High School Graduate service: No Current occupational status: disabled Current occupational exposures/hazards: No Pets and animals: Yes Leisure activites: exercise, fishing, reading and volunteer work Sexually active: No Do you think of yourself as: Straight/Heterosexual Current gender identity: Female Balbina/Bahai: Scientologist Special balbina needs: No Agree to transfusion: Yes Vitals/I&O/Wt Last Vital Signs Temp 98.2 F 10/10/23 13:09 Pulse 102 H 10/10/23 15:09 Resp 16 10/10/23 15:09 BP 113/76 10/10/23 15:09 Pulse Ox 90 10/10/23 15:09 O2 Del Method Room Air 10/10/23 13:09 Physical Exam Narrative: Patient extremely anxious She is standing up walking long pacing in the room Hemodynamic stable Currently on room air Nonfocal neuroexam GCS 15 Abdomen soft S1, S2 Nonfocal neuroexam Multiple skin ulcers she notes she picks on her skin Data 10/10/23 13:49 10/10/23 15:24 A&P Assessment and plan (1) Cauda equina compression: (2) Polysubstance abuse: Plan Cauda equina Patient had surgery in [place] for months ago Will request records Not endorsing IV drug abuse history however tested positive for methamphetamine marijuana and opiates I will put her on vancomycin and Decadron Dr. Vargas consulted Plan for surgery in the morning Will put her on antihypertensive and anxiolytics Monitor in ICU Start CIWA protocol, potassium and folic acid N.p.o. at midnight Full code DVT prophylaxis SCDs Attestations Medical Necessity Statement*: >2 midnights Diagnoses Cauda equina compression G83.4 Polysubstance abuse F19.10
[2023-10-10 16:50] LABS: Blood Urine 2+ (Negative); Glucose Urine UA Norm (Normal); Ketones Urine 1+ (Negative); Nitrate Urine Negative (Negative); Protein Urine 1+ (Negative); Specific Gravity, Urine 1.005 (1.005-1.030); Urine Appearance Clear (CLEAR); Urine Color Amber (Yellow); pH Urine 7 (5-7)
[2023-10-10 16:51] LABS: Add Urine Microscopic? YES; Bilirubin Urine Neg (Negative); Leukocyte Esterase Urine Negative (Negative); Urobilinogen Urine 1 mg/dL (Negative)
[2023-10-10 16:59] LABS: Amphetamines Screen Urine Positive (Negative); Barbiturates Screen Urine Negative (Negative); Benzodiazepines Screen Urine Negative (Negative); Cocaine Screen Urine Negative (Negative); Opiate Screen Urine Positive (Negative); PCP Screen Urine Negative (Negative); THC Screen Urine Positive (Negative)
--- NOTE | 2023-10-10 17:00 | PC.NURSE ---
pt called nurse in to room to say that she does not want to be admitted because she has a $500 bird at home she needs to take care of. Cristina Paul notified
[2023-10-10 17:21] LABS: Add Urine Culture? No; RBC Urine 0-4 /hpf (0-2); Squamous Epithelial Cell Urine 0-4 /hpf (0-5)
[2023-10-10] MEDS: dexamethasone 4 mg/mL INJ IVP ×2 (17:47→22:14)
--- NOTE | 2023-10-10 17:51 | PC.NURSE ---
pt refuses to stay in bed for vital monitoring. Nurse has applied monitoring equpiment 3 times and patient has pulled pulse ox and bp cuff off each time before vitals can be recorded.
--- NOTE | 2023-10-10 18:00 | PM.CONSULT ---
Providers/Reason For Consult Consulting Physician/Specialty*: Hospitalist Reason for Consult*: Back pain radicular pain and incontinence Attending Physician: Jason Gallardo MD Primary Care Provider: Esther Lincoln DO History of Present Illness History of Present Illness Rosy Mims is a 53 year old female presents today with a history of severe back pain and pain rating down her legs. Is complaining of weakness in her legs. Patient is also been complaining of incontinence for the past couple days. Patient has a history of lumbar surgery in [place] for a decompression. Patient also had a history of surgery for infection in the site. At this point patient looks like she possibly has a reherniation of the disc at L4-5. She has significant stenosis at L3-4 and L5-S1 Review of Systems Const: Denies: fever(s), chills, body aches, fatigue or malaise Card: Denies: chest pain Resp: Denies: dyspnea GI: Denies: abdominal pain, nausea, vomiting or diarrhea : Reports: difficulty voiding, urinary urgency and urinary incontinence; Denies: flank pain, dysuria, urinary frequency, hematuria, vaginal odor, vaginal bleeding or pelvic pain Musc: Reports: back pain and extremity pain; Denies: neck pain, extremity swelling, joint pain or joint swelling Skin/Breast: Denies: rash Neuro: Reports: numbness in extremities, weakness in extremities and difficulty walking; Denies: headache(s), lack of coordination, dizziness, vertigo, confusion, Slurred speech present or difficulty communicating thoughts Medications/Allergies Home Medications Medication Instructions Recorded Confirmed Last Taken Type baclofen 20 mg tablet 20 mg PO TID 10/02/20 05/27/23 Unknown History duloxetine 60 mg capsule,delayed 60 mg PO BID 10/02/20 05/27/23 Unknown History release (Cymbalta) ibuprofen 800 mg tablet 800 mg PO TID 10/02/20 05/27/23 Unknown History trazodone 150 mg tablet 150 mg PO DAILY 10/02/20 05/27/23 Unknown History night splint #1 ea 11/09/20 05/27/23 Unknown Rx mupirocin 2 % topical ointment 1 applic topical BID #22 grams 11/02/21 05/27/23 Unknown Rx calcipotriene 0.005 % topical 1 applic topical BID #120 grams 01/13/22 05/27/23 Unknown Rx cream (Dovonex) clobetasol 0.05 % topical ointment 1 applic topical BID 2 weeks #60 01/13/22 05/27/23 Unknown Rx grams triamcinolone acetonide 0.1 % 1 applic topical BID #453.6 grams 01/13/22 05/27/23 Unknown Rx topical ointment clindamycin phosphate 1 % lotion 1 applic topical DAILY #60 mL 02/14/22 05/27/23 Unknown Rx ketorolac 10 mg tablet 10 mg PO TID PRN pain #10 tabs 05/27/23 Unknown Rx methylprednisolone 4 mg tablets in See Rx Instructions PO .COMPLEX 05/27/23 Unknown Rx a dose pack (Medrol (Rey)) #21 ea metoprolol tartrate 25 mg tablet 25 mg PO BID 05/27/23 05/27/23 Unknown History Allergies Allergy/AdvReac Type Severity Reaction Status Date / Time pregabalin [From Lyrica] Allergy Mild rash Verified 05/27/23 15:14 codeine Allergy itching Verified 05/27/23 15:14 Current Medications Generic Name Dose Route Start Last Admin Trade Name Freq PRN Reason Stop Dose Admin Dexamethasone 4 mg 10/10/23 17:00 10/10/23 17:47 Dexamethasone 4 Mg/Ml Inj IVP 4 mg QID SOULEYMANE Administration PFSH Acute PFSH: Medical History Hypertension Surgical History H/O Spinal surgery Social History Smoking and tobacco/nicotine status: current every day tobacco/nicotine user Quit status (tobacco/nicotine): considering quitting Second hand smoke exposure: No Alcohol intake: current Alcohol intake frequency: holidays/special occasions only Alcohol type: other Substance/Drug Use: never Adopted: No Caregiver/support person: No Lives independently: Yes Household members: other Details: [employer] of [place] Housing: House Marital status: Single Number of children: 2 Number of grandchildren: 5 Highest education level completed: High School Graduate service: No Current occupational status: disabled Current occupational exposures/hazards: No Pets and animals: Yes Leisure activites: exercise, fishing, reading and volunteer work Sexually active: No Do you think of yourself as: Straight/Heterosexual Current gender identity: Female Balbina/Restorationism: Jainism Special balbina needs: No Agree to transfusion: Yes Vitals/I&O/Wt Last Vital Signs Temp 98.2 F 10/10/23 13:09 Pulse 102 H 10/10/23 15:09 Resp 16 10/10/23 15:09 BP 113/76 10/10/23 15:09 Pulse Ox 90 10/10/23 15:09 O2 Del Method Room Air 10/10/23 13:09 Physical Exam Narrative: Patient is lying in the bed when I walked in the room she got up out of bed shook my hand. She seems very uncomfortable got in and out of the bed a couple times. Incision on her back looks like a scar that is had multiple surgeries. Data 10/10/23 13:49 10/10/23 15:24 A&P Assessment and plan (1) Cauda equina compression: Patient MRI is reviewed. [facility] imaging there is some light up of the previous incision as well as some on both T2 imaging areas where there is looks like is a pocket of fluid patient has a history of infection we will plan on doing surgery tomorrow and decompress L3-4 L4-5 L5-S1 as well as take cultures to see if she has recurrence of her infection. Patient has severe disc degeneration L4-5 facets at L4-[address] scan. I had an open and honest discussion with the patient about the risks, benefits and alternatives to both surgical and nonsurgical treatment. The patient verbalized understanding of the inherent unpredictability associated with surgery. Risk of surgery were discussed including, but not limited to, infection, bleeding, temporary and permanent nerve damage, continued pain, stiffness, incomplete healing, need for revision surgery, blood clot and other complications. The patient verbalized understanding that there is spine is elective in nature and if they find any of these risks to be unacceptable then they should choose not to have the surgery. The patient verbalized understanding of these risks and elected to proceed with the surgery. Coding Level of Care Code Acute Code for [facility] Fwd Diagnoses Cauda equina compression G83.4
--- NOTE | 2023-10-10 18:09 | PC.NURSE ---
pt placed in gown at this time but does not vital monitor on at this time while pt is eating supper .
[2023-10-10] MEDS: HYDROmorphone 1 mg/mL INJ 1 mL 0.4 MG IVP ×2 (19:29→23:22)
[2023-10-10] MEDS: vancomycin 1,000 MG in sodium chloride 0.9% 250 ML 250 MG IV (19:30)
[2023-10-10] MEDS: LORazepam 2 mg/mL INJ 10 mL MDV IVP ×2 (19:34→23:20)
--- NOTE | 2023-10-10 20:41 | PC.NURSE ---
Arrival to ICU 5: pt reporting 8/10 pain in her lower back, thrashing around in the bed. Initial CIWA 17. See MAR for medications given. Admission assessment limited d/t severe pain and elevated CIWA. Pt connected to continuos cardiac monitoring. Seizure precautions implemented.
[2023-10-10] MEDS: oxyCODONE 5 mg IR Tab/Cap PO (22:20)
[2023-10-11] VITALS (55 sets, daily range): BP systolic 99–171; BP diastolic 60–106; PULSE 72–115; RESP 12–27; TEMP 35.7–37.1; O2SAT 90–100
--- NOTE | 2023-10-11 | XR_ITS ---
WS: [id number] XR lumbar spine 1V port [id number] REASON FOR EXAM: RUBIN PICS FINDINGS: Tissue spreaders at the L3-L4 and L4-L5 levels. IMPRESSION: Lumbar localization and surgery.
[2023-10-11] MEDS: oxyCODONE 5 mg IR Tab/Cap PO (02:18)
[2023-10-11] MEDS: vancomycin 1,000 MG in sodium chloride 0.9% 250 ML 250 MG IV ×3 (02:23→21:11)
[2023-10-11] MEDS: HYDROmorphone 1 mg/mL INJ 1 mL 0.4 MG IVP ×4 (03:18→23:49)
[2023-10-11] MEDS: LORazepam 2 mg/mL INJ 10 mL MDV IVP ×4 (03:19→11:32)
[2023-10-11 05:07] LABS: Basophils % 0.1 %; Hematocrit 36.5 % (36-47); Lymphocytes # 0.4 10^3/uL (0.8-4.8); Lymphocytes % 3.2 %; Mean Corpuscular HGB Conc 31.5 g/dL (30-55); Mean Corpuscular Hemoglobin 29.5 pg (27-33); Mean Corpuscular Volume 93.6 fl (85-98); Monocytes # 0.9 10^3/uL (0.2-0.9); Monocytes % 6.6 %; Neutrophils # 12.02 10^3/uL (1.8-7.7); Neutrophils % 89.7 %; Nucleated Red Blood Cells % 0 %; Platelet Count 176 10^3/cmm (157-399); Red Cell Distribution Width 14.5 % (12.1-15.1); White Blood Count 13.41 10^3/uL (3.29-11.43)
[2023-10-11 05:36] LABS: Anion Gap 12.6 (5-19); Blood Urea Nitrogen 17 mg/dL (6-20); C Reactive Protein 133.7 mg/L (0.0-4.9); Carbon Dioxide 24 mmol/L (22-29); Chloride 108 mmol/L (98-107); Glomerular Filtration Rate 129.6 mL/min (90-130); Glucose 139 mg/dL (65-115); Osmolality Calculated 296 mOsm/kg (285-295); Potassium 3.6 mmol/L (3.5-5.1); Sodium 141 mmol/L (136-145)
--- NOTE | 2023-10-11 07:22 | PM.PN ---
Subjective Subjective: 53yo F seen at bedside this morning. severely agitated. CIWA protocol followed except for ativan overnight, considered precidex prior to OR with Dr. Vargas; however, after ativan pt became less agitated. Consulted by Dr. Vargas. will bring back for surgery this AM precedex and intubation after surgery. Rosy Mims is a 53 year old female who had surgery for her back pain in [place] couple months ago presented to hospital for worsening back pain new incontinence. Patient in the ER has been tested for marijuana methamphetamine and opioids. She appears very anxious complaining of pain however Is still she is standing up complaining of back pain radiating towards her knee. Extremely anxious. Hemodynamic stable. Patient stating that she is anxious about the parrot that she has at home She lives alone. Endorses drinking alcohol/whiskey on daily basis she drinks 3-4 shots every day, smokes every day. Medications: Reviewed: Yes Vitals/I&O/Wt Last Vital Signs Temp 97.9 F 10/11/23 04:30 Pulse 103 H 10/11/23 06:00 Resp 22 H 10/11/23 06:00 BP 151/80 10/11/23 04:30 Pulse Ox 95 10/11/23 06:00 O2 Del Method Nasal Cannula 10/11/23 06:00 O2 Flow Rate 2 10/11/23 06:00 10/10/23 10/11/23 10/11/23 22:59 06:59 14:59 Intake Total 475 / 475 250 / 725 Output Total 300 / 300 Balance 475 / 475 -50 / 425 Weight last 48 hrs Weight 162 lb Weight 157 lb 9.6 oz Weight 155 lb 4.8 oz Physical Exam Narrative: Patient extremely anxious She is standing up walking long pacing in the room Hemodynamic stable Currently on room air Nonfocal neuroexam GCS 15 Abdomen soft S1, S2 Nonfocal neuroexam Multiple skin ulcers she notes she picks on her skin Urinary Catheter Management: Lew: Cath Placed During This Visit: yes Reason for Continuing Indwelling Catheter: Accurate Measurement of Urinary Output in Critically Ill Patients Urinary Catheter Date of Insertion: 10/10/23 Urinary Catheter Time of Insertion: 19:48 Data 10/11/23 04:28 10/11/23 04:28 A&P Assessment and plan (1) Cauda equina compression: will be brought to OR by Dr. Vargas this AM NPO close monitoring (2) Polysubstance abuse: CIWA protocol likely precedex and intubation after surgery x 1-2 days Plan Cauda equina - Dr. Vargas consulted, will be brought to OR this AM Patient had surgery in [place] for months ago Pending records from [facility] Not endorsing IV drug abuse history however tested positive for methamphetamine marijuana and opiates Vancomycin Decadron x 1 CIWA protocol NPO will place on precedex after OR to protect her back s/p decompresion procedure by Dr. Vargas Will put her on antihypertensive and anxiolytics DVT prophylaxis SCDs Attestations Medical Necessity Statement*: patient will require 2 overnight stays for cauda equina syndrome requiring OR and ICU Coding Level of Care Code 94812 Diagnoses Cauda equina compression G83.4 Polysubstance abuse F19.10
--- NOTE | 2023-10-11 08:44 | PC.PHAR ---
PT UNABLE TO VERIFY MEDS- PTS MOTHER MARGE [phone] WAS ABLE TO VERIFY MEDICATIONS OVER THE PHONE- PT FILLS ALL MEDS EXCEPT GABAPENTIN 600 MG TID AT [facility] IN [place]- GABAPENTIN 600 MG IS FILLED AT [facility]
[2023-10-11] MEDS: dexamethasone 4 mg/mL INJ IVP ×3 (09:47→21:10)
[2023-10-11] MEDS: dexmedeTOMIDine 0.9 % NaCL 400 MCG/100 ML PREMIX IV (12:15)
--- NOTE | 2023-10-11 15:22 | W.PM.OPSUD ---
Surgery/Procedure H&P Update DATE OF PROCEDURE: October 11, 2023 DATE H&P PERFORMED: 10/10/23 H&P UPDATE INFORMATION: I have reviewed H&P completed within last 30 days, I have examined patient prior to procedure and No changes to prior documentation PREOP DIAGNOSIS: Lumbar stenosis with neurogenic claudication; cauda equina syndrome PLANNED PROCEDURE: Operation Date: 10/11/23 16:25 Proposed Procedures p Lumbar 3 to sacral one decompression(Not Applicable) - Jean Pierre Vargas DO
--- NOTE | 2023-10-11 15:25 | PC.NURSE ---
Patient in care of OR staff at this time. Transporting in bed on 2L NC. Eyes open to verbal command, speech mumbled.
[2023-10-11] MEDS: ceFAZolin 2,000 MG in sodium chloride 0.9% (plus) 50 ML 100 MG IV ×2 (15:55→23:37)
[2023-10-11] MEDS: vancomycin 1,000 MG SDV 1000 MG XX (16:27)
[2023-10-11] MEDS: lidocaine-epi 1% 20 mL INJ INJECTION (16:28)
--- NOTE | 2023-10-11 18:04 | PM.OP ---
Operative Report Date of procedure: October 11, 2023 Pre-op diagnosis: Cauda equina syndrome Post-op diagnosis: same Post-op findings: acute disc herniation L4-5 Discitis L4-5 Specimens removed/disposition: Cultures were taken from epidural space as well as L4-5 disc space as well as soft tissue Surgeon: Jean Pierre Vargas DO Estimated blood loss (mL): 300 Procedure: 1. L3-4 laminectomy with partial facetectomies 2. L4-5 laminectomy with partial facetectomies and discectomy 3. L5-S1 laminectomy and partial facetectomies Patient brought the op suite after undergoing anesthesia was placed in the prone position. All areas impingement well-padded. Patient's prepped draped normal sterile fashion. Skin incision is made over the L3 down to S1 level. The thoracolumbar fascia scar was cut through. Subperiosteal dissection was made over the L3 lamina out to the L3-4 facets this was also done at L5-S1. L4-5 facets were identified in line with the facets and exposed with the Bovie. Retractors were placed. Microscope was brought in. Attention was first brought to the L3-4 level high-speed bur was used to take down the lamina bilaterally. And then take down the medial aspect of facet joints bilaterally. And then the Kerrison rongeur and curved curettes were used to take down the lamina and medial aspect of facet joints. As well as take down the ligamentum flavum down to the L4 scar tissue. The L3 nerves were traced out the L3-4 foramen felt to be adequately decompressed. Next attention brought to the L5-S1 level. The lamina was taken down using the high-speed bur as well as medial aspect of facet joints. I began the Kerrison rongeur was used to take down the medial aspects of the L5-S1 facet. And then the ligamentum flavum from L5-S1. The S1 nerve roots and L5 nerve roots were traced out the foramen as well as around the S1 pedicle. Next tension was brought to the L4-5 level this operated been previously operated on several times. The facet joints were taken down with a high-speed bur up to the scar tissue. Curved curette was used to free the scar tissue from the bone. And then the Kerrison rongeur was used to take down the medial aspect of facet joint. This was done bilaterally. The L5 pedicle was identified L5 nerve was traced around this pedicle and then it was brought back up to her disc base was the disc base was identified and there was an extruded disc fragment that migrated up superiorly by the pedicle of L4 this was removed using Kerrison rongeurs and teasing out of the scar tissue. Did not appear to be that scarred so I believe there was acute disc herniation. The disc space was opened with a curette at L4-5 and darío pus came out when this happened. Cultures were taken. Cultures were also taken of the epidural space as well as soft tissue of the scar. The L4 nerve was traced out the foramen the dura was in good repair there is scar stilled dorsally on the dura however did not feel it was necessary or risk was worth it to tease the scar tissue off of the dura. Wound was then irrigated thoroughly the space was irrigated thoroughly prior to this. In the end was irrigated and then the vancomycin powder was placed deep drain was placed. And then the wound was closed in layered fashion with 0 Vicryl 2-0 Vicryl and Monocryl suture. Sterile dressings were applied and patient was transferred to the ICU in stable condition.
[2023-10-11 20:34] LABS: Vancomycin Trough 11.8 ug/mL (10-15)
[2023-10-11] MEDS: dexmedeTOMIDine 0.9 % NaCL 400 MCG/100 ML PREMIX 9.19 MCG IV (23:29)
[2023-10-12] VITALS (42 sets, daily range): BP systolic 81–188; BP diastolic 50–106; PULSE 70–112; RESP 0–34; TEMP 36.2–36.8; O2SAT 90–100; BMI 32.1
[2023-10-12] MEDS: acetaminophen 325 mg Tablet 650 MG PO (01:23)
[2023-10-12] MEDS: vancomycin 1,000 MG in sodium chloride 0.9% 250 ML 250 MG IV ×3 (02:29→19:07)
[2023-10-12] MEDS: oxyCODONE 5 mg IR Tab/Cap PO ×2 (02:30→07:48)
--- NOTE | 2023-10-12 07:09 | P.PN_ITS ---
Subjective 2 Subjective: Patient sleeping in bed Vitals/I&O/Wt Last Vital Signs Temp 96.3 F L 10/11/23 20:30 Pulse 72 10/12/23 06:30 Resp 15 10/12/23 06:30 BP 110/64 10/12/23 06:30 Pulse Ox 95 10/12/23 06:30 O2 Del Method Room Air 10/12/23 06:00 O2 Flow Rate 2 10/11/23 20:30 10/11/23 10/12/23 10/12/23 22:59 06:59 14:59 Intake Total 317.640 / 581.357 80.565 / 661.922 300 / 300 Output Total 125 / 125 400 / 525 Balance 192.640 / 456.357 -319.435 / 136.922 300 / 300 Weight last 48 hrs Weight 164 lb 8 oz Weight 162 lb Weight 157 lb 9.6 oz Weight 155 lb 4.8 oz Physical Exam 2 Narrative: Drain had 150cc out Urinary Catheter Management: Lew: Cath Placed During This Visit: yes Reason for Continuing Indwelling Catheter: Accurate Measurement of Urinary Output in Critically Ill Patients Urinary Catheter Date of Insertion: 10/10/23 Urinary Catheter Time of Insertion: 19:48 Data 10/11/23 04:28 10/11/23 04:28 A&P Assessment and plan (1) Status post lumbar laminectomy: Postop day #1 from L3-S1 laminectomy. Patient had pus in her displaced. Awaiting cultures Attestations 2 Medical Necessity Statement*: Per primary service Coding Level of Care Code Acute Code for [facility] Fwd Diagnoses Status post lumbar laminectomy Z98.890
[2023-10-12] MEDS: ceFAZolin 2,000 MG in sodium chloride 0.9% (plus) 50 ML 100 MG IV ×2 (07:44→15:38)
[2023-10-12] MEDS: dexmedeTOMIDine 0.9 % NaCL 400 MCG/100 ML PREMIX 11.02 MCG IV (07:47)
[2023-10-12] MEDS: ketorolac 30 mg/mL INJ IVP ×2 (07:48→18:11)
[2023-10-12] MEDS: LORazepam 2 mg Tablet PO ×2 (08:26→18:11)
[2023-10-12] MEDS: multivitamin therapeutic Tablet 1 TAB PO (08:28)
[2023-10-12] MEDS: dexamethasone 4 mg/mL INJ IVP ×3 (08:28→18:11)
[2023-10-12] MEDS: sennosides-docusate Tablet 1 TAB PO (08:28)
[2023-10-12] MEDS: thiamine 100 mg Tablet PO (08:29)
[2023-10-12] MEDS: folic acid 1 mg Tablet PO (08:29)
[2023-10-12] MEDS: docusate sodium 100 mg Capsule PO ×2 (08:29→18:12)
[2023-10-12] MEDS: HYDROmorphone 1 mg/mL INJ 1 mL 0.4 MG IVP ×2 (08:50→18:12)
--- NOTE | 2023-10-12 12:16 | P.PN_ITS ---
Subjective 2 Subjective: This morning patient is scoring CIWA around 17 I have turned off Precedex drip I do believe her symptoms are related anxiety, patient is able to answer my questions appropriately Complaining of back pain Will give her Toradol Vitals/I&O/Wt Last Vital Signs Temp 98.0 F 10/12/23 08:00 Pulse 73 10/12/23 08:44 Resp 17 10/12/23 08:50 BP 111/76 10/12/23 08:00 Pulse Ox 94 10/12/23 08:44 O2 Del Method Room Air 10/12/23 08:44 O2 Flow Rate 2 10/11/23 20:30 10/11/23 10/12/23 10/12/23 22:59 06:59 14:59 Intake Total 317.640 / 581.357 80.565 / 661.922 632.877 / 632.877 Output Total 125 / 125 400 / 525 Balance 192.640 / 456.357 -319.435 / 136.922 632.877 / 632.877 Weight last 48 hrs Weight 74.616 kg Weight 73.482 kg Weight 71.486 kg Weight 70.443 kg Physical Exam 2 Narrative: Complaining of back pain Moving her extremities GCS 15 Afebrile S1, S2 Abdomen soft Nonfocal Anxious. Tossing in bed Urinary Catheter Management: Lew: Cath Placed During This Visit: yes Reason for Continuing Indwelling Catheter: Accurate Measurement of Urinary Output in Critically Ill Patients Urinary Catheter Date of Insertion: 10/10/23 Urinary Catheter Time of Insertion: 19:48 Data 10/11/23 04:28 10/11/23 04:28 Micro: Microbiology 10/11/23 16:16 Gram Stain - Final Other Source 10/11/23 16:16 Gram Stain - Final Tissue A&P Assessment and plan (1) Polysubstance abuse: (2) Cauda equina compression: (3) Status post lumbar laminectomy: Plan Patient can be transferred out of ICU Signs of withdrawal could be controlled with CIWA protocol or use of phenobarbital on as-needed basis Turn of Precedex drip For pain continue opiates Spinal abscess removed by Dr. Vargas, patient not a candidate for PICC line placement for long-term IV line however I will give her antibiotic coverage for at least 6 weeks for which she has to come to the hospital and stay compliant Will wait for final culture report Will give her anti-inflammatory medication as well Attestations 2 Medical Necessity Statement*: Can be transferred to [facility] Diagnoses Polysubstance abuse F19.10 Cauda equina compression G83.4 Status post lumbar laminectomy Z98.890
[2023-10-12] MEDS: LORazepam 2 mg/mL INJ 10 mL MDV IVP ×2 (12:28→21:29)
[2023-10-12] MEDS: HYDROcodone-acetaminophen 5-325 mg Tablet PO ×3 (12:28→22:23)
[2023-10-12] MEDS: PHENobarbital 130 mg/mL SDV 1 mL 60 MG IVP (12:51)
[2023-10-12] MEDS: ondansetron 2 mg/ML SDV 2 mL 4 MG IVP (18:12)
[2023-10-12] MEDS: duloxetine 60 mg Capsule PO (19:07)
[2023-10-12] MEDS: ibuprofen 800 mg tablet PO ×2 (19:07→21:27)
[2023-10-12] MEDS: metoprolol tartrate 25 mg Tablet PO (19:08)
[2023-10-12] MEDS: PHENobarbital 32.4 mg Tablet 97.2 MG PO (19:08)
[2023-10-12 22:10] LABS: Glucose Point of Care 159 mg/dL (70-110)
[2023-10-13] VITALS (11 sets, daily range): BP systolic 115–147; BP diastolic 41–83; PULSE 71–94; RESP 14–20; TEMP 36.1–36.9; O2SAT 91–96; BMI 32.5
[2023-10-13] MEDS: vancomycin 1,000 MG in sodium chloride 0.9% 250 ML 250 MG IV ×3 (03:00→18:02)
[2023-10-13] MEDS: oxyCODONE 5 mg IR Tab/Cap PO ×2 (03:07→20:08)
[2023-10-13 06:04] LABS: Hematocrit 29.3 % (36-47); Lymphocytes % 10.7 %; Mean Corpuscular HGB Conc 31.7 g/dL (30-55); Mean Corpuscular Hemoglobin 29.5 pg (27-33); Mean Platelet Volume 9.5 fL (7.4-10.4); Monocytes # 0.6 10^3/uL (0.2-0.9); Monocytes % 6.2 %; Neutrophils # 7.48 10^3/uL (1.8-7.7); Neutrophils % 82.4 %; Nucleated Red Blood Cells % 0 %; Platelet Count 184 10^3/cmm (157-399); Red Blood Count 3.15 10^6/uL (3.85-5.65); Red Cell Distribution Width 14.8 % (12.1-15.1); White Blood Count 9.07 10^3/uL (3.29-11.43)
[2023-10-13 06:29] LABS: Anion Gap 12.6 (5-19); Blood Urea Nitrogen 18 mg/dL (6-20); Calcium 8.1 mg/dL (8.5-10.5); Carbon Dioxide 22 mmol/L (22-29); Chloride 108 mmol/L (98-107); Creatinine Clr Calc Pharmacy 149.5533; Glomerular Filtration Rate 167.6 mL/min (90-130); Glucose 100 mg/dL (65-115); Osmolality Calculated 290 mOsm/kg (285-295); Potassium 3.6 mmol/L (3.5-5.1); Sodium 139 mmol/L (136-145)
[2023-10-13 06:53] LABS: Glucose Point of Care 105 mg/dL (70-110)
--- NOTE | 2023-10-13 08:06 | P.PN_ITS ---
Subjective 2 Subjective: Patient resting in bed arouses somewhat to talking but does not return any conversation. Vitals/I&O/Wt Last Vital Signs Temp 98.0 F 10/13/23 04:00 Pulse 83 10/13/23 04:00 Resp 18 10/13/23 04:00 BP 147/83 10/13/23 04:00 Pulse Ox 96 10/13/23 04:00 O2 Del Method Room Air 10/13/23 04:00 O2 Flow Rate 2 10/11/23 20:30 10/12/23 10/13/23 10/13/23 22:59 06:59 14:59 Intake Total 420 / 1292.877 250 / 1542.877 Output Total 170 / 270 40 / 310 Balance 250 / 1022.877 210 / 1232.877 Weight last 48 hrs Weight 166 lb 14.4 oz Weight 164 lb 8 oz Physical Exam 2 Narrative: Drain with minimal output Urinary Catheter Management: Lew: Cath Placed During This Visit: yes Reason for Continuing Indwelling Catheter: Accurate Measurement of Urinary Output in Critically Ill Patients Urinary Catheter Date of Insertion: 10/10/23 Urinary Catheter Time of Insertion: 19:48 Data 10/13/23 05:38 10/13/23 05:38 Micro: Microbiology 10/11/23 16:16 Gram Stain - Final Tissue Tissue Culture - Preliminary 10/11/23 17:24 Gram Stain - Final Other Source Abscess Culture - Preliminary 10/11/23 16:16 Gram Stain - Final Other Source Abscess Culture - Preliminary Coag positive Staphylococcus 10/12/23 13:05 Blood Culture - Preliminary Blood SPECIMEN COLLECTED 10/12/23 13:08 Blood Culture - Preliminary Blood SPECIMEN COLLECTED A&P Assessment and plan (1) Status post lumbar laminectomy: Postop day #2 decompression and I&D of back. DC drain Attestations 2 Medical Necessity Statement*: Per primary service Coding Level of Care Code Acute Code for [facility] Fwd Diagnoses Status post lumbar laminectomy Z98.890
[2023-10-13] MEDS: HYDROcodone-acetaminophen 5-325 mg Tablet PO ×2 (09:57→17:46)
[2023-10-13] MEDS: LORazepam 2 mg Tablet PO (09:59)
[2023-10-13] MEDS: PHENobarbital 32.4 mg Tablet 97.2 MG PO ×2 (10:02→17:46)
[2023-10-13] MEDS: sennosides-docusate Tablet 1 TAB PO (10:03)
[2023-10-13] MEDS: folic acid 1 mg Tablet PO (10:03)
[2023-10-13] MEDS: docusate sodium 100 mg Capsule PO ×2 (10:03→17:46)
[2023-10-13] MEDS: ibuprofen 800 mg tablet PO ×3 (10:03→20:08)
[2023-10-13] MEDS: metoprolol tartrate 25 mg Tablet PO ×2 (10:03→17:46)
[2023-10-13] MEDS: duloxetine 60 mg Capsule PO ×2 (10:03→17:46)
[2023-10-13] MEDS: multivitamin therapeutic Tablet 1 TAB PO (10:03)
[2023-10-13] MEDS: thiamine 100 mg Tablet PO (10:04)
--- NOTE | 2023-10-13 10:38 | PC.NURSE ---
The patient pulled out one of her IVs and pulled out her own hemovac.
[2023-10-13 10:46] LABS: Vancomycin Trough 16.1 ug/mL (10-15)
--- NOTE | 2023-10-13 11:17 | P.PN_ITS ---
Subjective 2 Subjective: Most likely this is MRSA patient will need 6 weeks of vancomycin Patient does not want to go to shelter she is not willing to give up her Social Security check Patient is willing to come to the hospital for 6 weeks for daily infusion She required about 1100 mg of vancomycin on daily basis for 6 weeks Prelim report showing coagulase positive Staphylococcus most likely it is MRSA Vitals/I&O/Wt Last Vital Signs Temp 98.2 F 10/13/23 08:00 Pulse 80 10/13/23 08:00 Resp 14 10/13/23 08:00 BP 139/75 10/13/23 08:00 Pulse Ox 91 10/13/23 08:00 O2 Del Method Room Air 10/13/23 04:00 O2 Flow Rate 2 10/11/23 20:30 10/12/23 10/13/23 10/13/23 22:59 06:59 14:59 Intake Total 420 / 1292.877 250 / 1542.877 Output Total 170 / 270 40 / 310 Balance 250 / 1022.877 210 / 1232.877 Weight last 48 hrs Weight 75.705 kg Weight 74.616 kg Physical Exam 2 Narrative: Emotional eval She removed her Hemovac drain GCS 15 Afebrile Nonfocal neuroexam No sign of meningitis Anticipating She is worried about her S1, S2 Able to answer my questions appropriately She starts crying after giving answers to all of my questions Urinary Catheter Management: Lew: Cath Placed During This Visit: yes Reason for Continuing Indwelling Catheter: Accurate Measurement of Urinary Output in Critically Ill Patients Urinary Catheter Date of Insertion: 10/10/23 Urinary Catheter Time of Insertion: 19:48 Data 10/13/23 05:38 10/13/23 05:38 Micro: Microbiology 10/11/23 16:16 Gram Stain - Final Tissue Tissue Culture - Preliminary 10/11/23 17:24 Gram Stain - Final Other Source Abscess Culture - Preliminary 10/11/23 16:16 Gram Stain - Final Other Source Abscess Culture - Preliminary Coag positive Staphylococcus 10/12/23 13:05 Blood Culture - Preliminary Blood SPECIMEN COLLECTED 10/12/23 13:08 Blood Culture - Preliminary Blood SPECIMEN COLLECTED A&P Assessment and plan (1) Polysubstance abuse: (2) Cauda equina compression: (3) Status post lumbar laminectomy: (4) Spinal abscess: Plan Polysubstance abuse Cauda equina decompression, spinal abscess removal Preliminary report showing MRSA Likely will need vancomycin 1 g of 1100 mg daily for 6 weeks She does not want to go to any shelter Agreeable for daily visit to the infusion center for vancomycin for 6 weeks manager client support will be updated Full code No need to repeat labs for tomorrow Afebrile No active signs of withdrawal anxiety seems to be related to underlying personality disorder Attestations 2 Medical Necessity Statement*: Continue medical management Diagnoses Polysubstance abuse F19.10 Cauda equina compression G83.4 Status post lumbar laminectomy Z98.890 Spinal abscess M46.20
[2023-10-13] MEDS: HYDROmorphone 1 mg/mL INJ 1 mL 0.4 MG IVP ×2 (12:27→21:26)
[2023-10-13] MEDS: LORazepam 2 mg/mL INJ 10 mL MDV IVP ×2 (20:07→21:25)
[2023-10-13] MEDS: gabapentin 300 mg Capsule 600 MG PO (23:42)
[2023-10-14 00:20] VITALS: BP 131/80
[2023-10-14] MEDS: haloperidol inj 5 mg/mL INJ 1 mL IVP (00:39)
[2023-10-14] MEDS: vancomycin 1,000 MG in sodium chloride 0.9% 250 ML 250 MG IV ×3 (02:59→17:01)
[2023-10-14 03:03] VITALS: BP 133/69; PULSE 83; RESP 14; O2SAT 92
[2023-10-14] MEDS: oxyCODONE 5 mg IR Tab/Cap PO (04:42)
[2023-10-14 05:33] VITALS: RESP 16
[2023-10-14] MEDS: HYDROmorphone 1 mg/mL INJ 1 mL 0.4 MG IVP (05:33)
[2023-10-14 08:00] VITALS: PULSE 89; RESP 16; O2SAT 92
[2023-10-14] MEDS: multivitamin therapeutic Tablet 1 TAB PO (08:29)
[2023-10-14] MEDS: docusate sodium 100 mg Capsule PO ×2 (08:29→16:59)
[2023-10-14] MEDS: PHENobarbital 32.4 mg Tablet 97.2 MG PO (08:29)
[2023-10-14] MEDS: ibuprofen 800 mg tablet PO ×3 (08:29→19:33)
[2023-10-14] MEDS: gabapentin 300 mg Capsule 600 MG PO ×3 (08:29→19:34)
[2023-10-14] MEDS: HYDROcodone-acetaminophen 5-325 mg Tablet PO ×2 (08:29→19:33)
[2023-10-14] MEDS: sennosides-docusate Tablet 1 TAB PO (08:29)
[2023-10-14] MEDS: duloxetine 60 mg Capsule PO ×2 (08:30→16:59)
[2023-10-14] MEDS: thiamine 100 mg Tablet PO (08:30)
[2023-10-14] MEDS: metoprolol tartrate 25 mg Tablet PO ×2 (08:30→16:59)
[2023-10-14] MEDS: folic acid 1 mg Tablet PO (08:30)
--- NOTE | 2023-10-14 09:44 | P.PN_ITS ---
Subjective 2 Subjective: Patient looks much calmer today Going for a shower She will need one-to-one supervision Still weak and lethargic however endorsing that her pain is slightly better Vitals/I&O/Wt Last Vital Signs Temp 98.3 F 10/13/23 23:39 Pulse 89 10/14/23 08:00 Resp 16 10/14/23 08:00 BP 133/69 10/14/23 03:03 Pulse Ox 92 10/14/23 08:00 O2 Del Method Room Air 10/14/23 08:00 O2 Flow Rate 96 10/13/23 11:54 10/13/23 10/14/23 10/14/23 22:59 06:59 14:59 Intake Total 250 / 620 250 / 870 Output Total 450 / 450 Balance -200 / 170 250 / 420 Weight last 48 hrs Weight 75.07 kg Weight 75.705 kg Physical Exam 2 Narrative: Anxiety slightly better No active signs of withdrawal Dressing is dry No active drainage GCS 15 Nonfocal neuroexam S1, S2 Currently on room air Urinary Catheter Management: Lew: Cath Placed During This Visit: yes, but has since been removed by the nurse Reason for Continuing Indwelling Catheter: Decision to DC Catheter Urinary Catheter Date of Insertion: 10/10/23 Urinary Catheter Time of Insertion: 19:48 Date Urinary Catheter Removed: 10/13/23 Time Urinary Catheter Discontinued: 18:44 Data 10/13/23 05:38 10/13/23 05:38 Micro: Microbiology 10/11/23 16:16 Gram Stain - Final Other Source Anaerobic Culture - Preliminary Abscess Culture - Final Staphylococcus aureus 10/11/23 17:24 Gram Stain - Final Other Source Anaerobic Culture - Preliminary Abscess Culture - Preliminary Coag positive Staphylococcus 10/11/23 16:16 Gram Stain - Final Tissue Tissue Culture - Preliminary 10/12/23 13:08 Blood Culture - Preliminary Blood NEGATIVE TO DATE 10/12/23 13:05 Blood Culture - Preliminary Blood NEGATIVE TO DATE A&P Assessment and plan (1) Polysubstance abuse: (2) Spinal abscess: (3) Cauda equina compression: (4) Status post lumbar laminectomy: Plan Patient will need 1 g vancomycin for 6 weeks Will set up infusion center appointment Patient does not want to go to SNF Continue vancomycin Afebrile Coagulase positive Staphylococcus likely MRSA no bacteremia Okay to have a shower under supervision DVT prophylaxis on board Attestations 2 Medical Necessity Statement*: Continue medical management Diagnoses Polysubstance abuse F19.10 Spinal abscess M46.20 Cauda equina compression G83.4 Status post lumbar laminectomy Z98.890
--- NOTE | 2023-10-14 10:36 | P.PN_ITS ---
Subjective 2 Subjective: Patient is sleeping in a chair. Sitter at bedside. Vitals/I&O/Wt Last Vital Signs Temp 98.3 F 10/13/23 23:39 Pulse 89 10/14/23 08:00 Resp 16 10/14/23 08:00 BP 133/69 10/14/23 03:03 Pulse Ox 92 10/14/23 08:00 O2 Del Method Room Air 10/14/23 08:00 O2 Flow Rate 96 10/13/23 11:54 10/13/23 10/14/23 10/14/23 22:59 06:59 14:59 Intake Total 250 / 620 250 / 870 Output Total 450 / 450 Balance -200 / 170 250 / 420 Weight last 48 hrs Weight 165 lb 8 oz Weight 166 lb 14.4 oz Physical Exam 2 Narrative: Sleeping in a chair Urinary Catheter Management: Lew: Cath Placed During This Visit: yes, but has since been removed by the nurse Reason for Continuing Indwelling Catheter: Decision to DC Catheter Urinary Catheter Date of Insertion: 10/10/23 Urinary Catheter Time of Insertion: 19:48 Date Urinary Catheter Removed: 10/13/23 Time Urinary Catheter Discontinued: 18:44 Data 10/13/23 05:38 10/13/23 05:38 Micro: Microbiology 10/11/23 17:24 Gram Stain - Final Other Source Anaerobic Culture - Preliminary Abscess Culture - Preliminary Coag positive Staphylococcus 10/11/23 16:16 Gram Stain - Final Other Source Anaerobic Culture - Preliminary Abscess Culture - Final Staphylococcus aureus 10/11/23 16:16 Gram Stain - Final Tissue Tissue Culture - Preliminary 10/12/23 13:08 Blood Culture - Preliminary Blood NEGATIVE TO DATE 10/12/23 13:05 Blood Culture - Preliminary Blood NEGATIVE TO DATE A&P Assessment and plan (1) Status post lumbar laminectomy: Patient is postop day #3 3 level laminectomy and irrigation debridement of infection. Discharge planning per primary service Attestations 2 Medical Necessity Statement*: Per primary service Coding Level of Care Code Acute Code for Chg Fwd Diagnoses Status post lumbar laminectomy Z98.890
[2023-10-14] MEDS: enoxaparin 40 mg/0.4 mL Syringe SUBCUT (10:54)
[2023-10-14 16:00] VITALS: BP 148/73; PULSE 89; RESP 16; TEMP 36.7; O2SAT 92
[2023-10-14] MEDS: LORazepam 2 mg/mL INJ 10 mL MDV IM (16:14)
--- NOTE | 2023-10-14 16:17 | PC.NURSE ---
Pt up wandering, attempting to leave. This RN along with other staff redirect back to room. Ativan IM given, d/t pt refusing PO and taking out IV prior in shift.
[2023-10-14 19:48] VITALS: BP 122/71; PULSE 85; RESP 16; TEMP 36.7; O2SAT 93
[2023-10-15] VITALS (7 sets, daily range): BP systolic 118–147; BP diastolic 66–82; PULSE 68–91; RESP 16–18; TEMP 36.2–36.7; O2SAT 92–97; BMI 32.6
[2023-10-15] MEDS: HYDROcodone-acetaminophen 5-325 mg Tablet PO ×4 (01:56→14:52)
[2023-10-15] MEDS: vancomycin 1,000 MG in sodium chloride 0.9% 250 ML 250 MG IV ×3 (01:57→23:24)
--- NOTE | 2023-10-15 05:00 | PC.NURSE ---
Dr. Sena notified that patient is consistently c/o of back pain and cannot have PRN [place] again for another hour. Ordered to give PRN [place] now (one hour early).
--- NOTE | 2023-10-15 05:58 | PC.NURSE ---
Patient received two Morgan at 2 am and two Morgan at 5 am. She is still asking for something else for pain, and stating that her back still hurts. Dr. Sena notified and ordered [address] Sena notified that patient is receiving 800 mg Ibuprofen TID currently. Ordered okay to still give one time dose of Toradol.
[2023-10-15] MEDS: ketorolac 30 mg/mL INJ 15 MG IVP (06:30)
--- NOTE | 2023-10-15 06:34 | PC.NURSE ---
Patient knows she is in the hospital, but thinks she is at [facility]. Patient does not know the date or why she is in the hospital.
[2023-10-15] MEDS: sennosides-docusate Tablet 1 TAB PO (08:56)
[2023-10-15] MEDS: duloxetine 60 mg Capsule PO ×2 (08:56→17:27)
[2023-10-15] MEDS: ibuprofen 800 mg tablet PO ×3 (08:56→20:39)
[2023-10-15] MEDS: folic acid 1 mg Tablet PO (08:56)
[2023-10-15] MEDS: gabapentin 300 mg Capsule 600 MG PO ×3 (08:56→20:39)
[2023-10-15] MEDS: multivitamin therapeutic Tablet 1 TAB PO (08:56)
[2023-10-15] MEDS: docusate sodium 100 mg Capsule PO ×2 (08:56→17:27)
[2023-10-15] MEDS: metoprolol tartrate 25 mg Tablet PO ×2 (08:56→17:27)
[2023-10-15] MEDS: thiamine 100 mg Tablet PO (08:57)
--- NOTE | 2023-10-15 09:22 | P.PN_ITS ---
Subjective 2 Subjective: Afebrile Culture showing Staph aureus Patient is ready to be discharged once we set up IV infusion at the clinic she will need 1 g for neck 6 weeks She will need Vanco trough level weekly with CBC and BMP Vitals/I&O/Wt Last Vital Signs Temp 98.0 F 10/15/23 08:00 Pulse 91 10/15/23 08:00 Resp 16 10/15/23 08:00 BP 147/82 10/15/23 08:00 Pulse Ox 92 10/15/23 08:00 O2 Del Method Room Air 10/15/23 08:00 O2 Flow Rate 96 10/13/23 11:54 10/14/23 10/15/23 10/15/23 22:59 06:59 14:59 Intake Total 250 / 500 250 / 750 5 / 5 Balance 250 / 500 250 / 750 5 / 5 Weight last 48 hrs Weight 75.807 kg Weight 75.07 kg Physical Exam 2 Narrative: Patient was asleep when entered the room When she woke up she started complaining of pain and remained anxious Urinary Catheter Management: Lew: Cath Placed During This Visit: yes, but has since been removed by the nurse Reason for Continuing Indwelling Catheter: Decision to DC Catheter Urinary Catheter Date of Insertion: 10/10/23 Urinary Catheter Time of Insertion: 19:48 Date Urinary Catheter Removed: 10/13/23 Time Urinary Catheter Discontinued: 18:44 Data 10/13/23 05:38 10/13/23 05:38 Micro: Microbiology 10/11/23 17:24 Gram Stain - Final Other Source Anaerobic Culture - Preliminary Abscess Culture - Preliminary Coag positive Staphylococcus 10/11/23 16:16 Gram Stain - Final Tissue Tissue Culture - Final 10/11/23 16:16 Gram Stain - Final Other Source Anaerobic Culture - Preliminary Abscess Culture - Final Staphylococcus aureus A&P Assessment and plan (1) Polysubstance abuse: (2) Spinal abscess: (3) Cauda equina compression: Plan I will add escitalopram and Xanax She will need 1 g of vancomycin for 6 weeks for spinal abscess MRSA without bacteremia Ready to be discharged once we are able to set up clinic appointment Attestations 2 Medical Necessity Statement*: Possible discharge tomorrow Diagnoses Polysubstance abuse F19.10 Spinal abscess M46.20 Cauda equina compression G83.4
[2023-10-15] MEDS: enoxaparin 40 mg/0.4 mL Syringe SUBCUT (10:13)
[2023-10-15] MEDS: escitalopram 10 mg Tablet PO (10:13)
[2023-10-15 19:47] LABS: Vancomycin Trough 13.6 ug/mL (10-15)
--- NOTE | 2023-10-15 20:04 | PC.NURSE ---
Addendum entered by Daphne Valerio RN 10/15/23 20:36: Pharmacist decided not to change dose, but continue 1gm q8h w/trough drawn before the 5th dose. Orders entered, lab notified. Original Note: Vanc through received 13.6, called telepharmacy regarding vanc through. Pharmacy will adjust dose.
--- NOTE | 2023-10-15 20:40 | PC.NURSE ---
Home medications, money, and keys taken out of ICU pyxis and brought to Med Surg. Given to Lissy RN - Charge Nurse
[2023-10-16] VITALS: BP 113/63; PULSE 74; RESP 17; TEMP 36.6; O2SAT 96
[2023-10-16] MEDS: acetaminophen 500 mg Tablet PO ×2 (02:26→04:12)
[2023-10-16 04:00] VITALS: BP 100/64; PULSE 83; RESP 17; TEMP 36.2; O2SAT 98
[2023-10-16] MEDS: ibuprofen 800 mg tablet PO (04:13)
--- NOTE | 2023-10-16 04:16 | PC.NURSE ---
Pt c/o pain 06/13 after apap administration. Referred pt to Dr. Sena for review of pain management. NO received and noted to admin IBU 0900 dose early, and give another dose of 500mg apap.
[2023-10-16 07:57] VITALS: PULSE 81; RESP 18; O2SAT 97
[2023-10-16 08:00] VITALS: BP 149/67; PULSE 92; RESP 22; TEMP 36.3; O2SAT 98
[2023-10-16] MEDS: gabapentin 300 mg Capsule 600 MG PO (08:50)
[2023-10-16] MEDS: multivitamin therapeutic Tablet 1 TAB PO (08:50)
[2023-10-16] MEDS: thiamine 100 mg Tablet PO (08:50)
[2023-10-16] MEDS: escitalopram 10 mg Tablet PO (08:50)
[2023-10-16] MEDS: ALPRAZolam 0.5 mg Tablet PO (08:50)
[2023-10-16] MEDS: duloxetine 60 mg Capsule PO (08:50)
[2023-10-16] MEDS: docusate sodium 100 mg Capsule PO (08:50)
[2023-10-16] MEDS: HYDROcodone-acetaminophen 5-325 mg Tablet 1 TAB PO (08:50)
[2023-10-16] MEDS: folic acid 1 mg Tablet PO (08:50)
[2023-10-16] MEDS: sennosides-docusate Tablet 1 TAB PO (08:50)
[2023-10-16] MEDS: metoprolol tartrate 25 mg Tablet PO (08:50)
--- NOTE | 2023-10-16 09:49 | P.DS_ITS ---
Discharge Providers Date of Admission: 10/10/23 17:45 Date of Discharge: October 16, 2023 Attending Provider at Admission: Jason Gallardo MD Attending Provider at Discharge: Jason Gallardo MD Primary Care Provider: Esther Lincoln DO Diagnoses at Discharge Discharge Diagnosis (1) Polysubstance abuse: Status: Acute (2) Cauda equina compression: Status: Acute (3) Status post lumbar laminectomy: Status: Acute (4) Spinal abscess: Status: Acute Reason for Visit Reason for Visit: Back Pain Hospital Course Hospital Course 51-year-old female with history of alcohol abuse, polysubstance abuse IV drug abuse, left AMA from [facility] few months ago after cauda equina decompression and spinal abscess intervention patient was being discharged to a alf when she left AMA presented to our hospital with worsening of her symptoms, Dr. Vargas was consulted who removed her spinal absce ss and decompressed her spine, we are not able to put a PICC line considering her history however patient does not want to go to alf does not want to give her her Social Security check she is willing to come to the infusion clinic for next 6 weeks for IV 1 g vancomycin on daily basis. She was given CIWA protocol during hospitalization and required frequent anxiolytics. She is very anxious she keeps talking about her parrot. Patient is not endorsing her polysubstance abuse, her daughter called and told us about her significant IV drug abuse history. Sample from the OR showing coag positive Staphylococcus which came back as MSSA on 05/16, we were in the midst of making sure she goes to [facility]term acute care facility to get 6 weeks of IV antibiotics however patient is stating that she is extremely anxious and worried about her better at and left AMA. I have called her family to update them. I will send prescription to get oral antibiotics at least for next 6 weeks for MSSA. Physical Exam Narrative: Signs of cauda equina improving Anxious appearing Currently tossing in her bed Currently on room air Drain has been removed by the patient on her own Hemodynamically stable Urinary Catheter Management: Lew: Cath Placed During This Visit: yes Reason for Continuing Indwelling Catheter: Accurate Measurement of Urinary Output in Critically Ill Patients Urinary Catheter Date of Insertion: 10/10/23 Urinary Catheter Time of Insertion: 19:48 Discharge Data Studies Completed and Pending Completed Studies During Hospitalization Category Date Time Status CT abdomen pelvis w con* [id number] Urgent Cat Scan 10/10/23 13:28 Completed XR chest 1V portable [id number] Urgent Exams 10/10/23 16:12 Completed XR lumbar spine 1V port [id number] Routine Exams 10/11/23 Completed MR lumbar spine wo con* [id number] Stat MRI 10/10/23 13:28 Completed Pending at discharge Category Date Time Status Abscess Culture and Gram Stain Routine Lab 10/11/23 16:16 Results Abscess Culture and Gram Stain Routine Lab 10/11/23 17:24 Results Anaerobic Culture Routine Lab 10/11/23 16:16 Results Anaerobic Culture Routine Lab 10/11/23 17:24 Results Blood Culture Stat Lab 10/12/23 13:05 Results Tissue Culture and Gram Stain Routine Lab 10/11/23 16:16 Results Radiology Impressions Abdomen/Pelvis CT 10/10/23 13:28 IMPRESSION: No acute findings or significant interval change. Chest X-Ray 10/10/23 16:12 IMPRESSION: No acute findings. Laboratory Results WBC 9.07 10^3/uL (3.29-11.43) 10/13/23 05:38 RBC 3.15 10^6/uL (3.85-5.65) L 10/13/23 05:38 Hgb 9.30 g/dL (11.27-16.99) L 10/13/23 05:38 Hct 29.3 % (36-47) L 10/13/23 05:38 MCV 93.0 fl (85-98) 10/13/23 05:38 MCH 29.5 pg (27-33) 10/13/23 05:38 MCHC 31.7 g/dL (30-55) 10/13/23 05:38 RDW 14.8 % (12.1-15.1) 10/13/23 05:38 Plt Count 184 10^3/cmm (157-399) 10/13/23 05:38 MPV 9.5 fL (7.4-10.4) 10/13/23 05:38 Neut % (Auto) 82.4 % 10/13/23 05:38 Lymph % (Auto) 10.7 % 10/13/23 05:38 [place] % (Auto) 6.2 % 10/13/23 05:38 Eos % (Auto) 0.0 % 10/13/23 05:38 Baso % (Auto) 0.0 % 10/13/23 05:38 Neut # (Auto) 7.48 10^3/uL (1.8-7.7) 10/13/23 05:38 Lymph # (Auto) 1.0 10^3/uL (0.8-4.8) 10/13/23 05:38 [place] # (Auto) 0.6 10^3/uL (0.2-0.9) 10/13/23 05:38 Eos # (Auto) 0.0 10^3/uL (0.0-0.8) 10/13/23 05:38 Baso # (Auto) 0.0 10^3/uL (0.0-0.1) 10/13/23 05:38 Nucleated RBC % (auto) 0 % 10/13/23 05:38 Nucleated RBCs # 0.0 /100WBC 10/13/23 05:38 Sodium 139 mmol/L (136-145) 10/13/23 05:38 Potassium 3.6 mmol/L (3.5-5.1) 10/13/23 05:38 Chloride 108 mmol/L (98-107) H 10/13/23 05:38 Carbon Dioxide 22 mmol/L (22-29) 10/13/23 05:38 Anion Gap 12.6 (5-19) 10/13/23 05:38 BUN 18 mg/dL (6-20) 10/13/23 05:38 Creatinine 0.4 mg/dL (0.5-0.9) L 10/13/23 05:38 GFR Calculation 167.6 mL/min (90-130) H 10/13/23 05:38 Glucose 100 mg/dL (65-115) 10/13/23 05:38 POC Glucose 105 mg/dL (70-110) 10/13/23 06:50 Calculated Osmolality 290 mOsm/kg (285-295) 10/13/23 05:38 Calcium 8.1 mg/dL (8.5-10.5) L 10/13/23 05:38 Total Bilirubin 1.1 mg/dL (0.15-1.2) 10/10/23 15:24 AST 22 U/L (0-32) 10/10/23 15:24 ALT 13 U/L (0-33) 10/10/23 15:24 Alkaline Phosphatase 69 U/L (35-105) 10/10/23 15:24 C-Reactive Protein 133.7 mg/L (0.0-4.9) H 10/11/23 04:28 Total Protein 6.8 g/dL (6.6-8.7) 10/10/23 15:24 Albumin 3.9 g/dL (3.5-5.2) 10/10/23 15:24 Globulin 2.9 g/dL (1.3-4.6) 10/10/23 15:24 Urine Color Lilia (Yellow) 10/10/23 16:40 Urine Appearance Clear (CLEAR) 10/10/23 16:40 Urine pH 7 (5-7) 10/10/23 16:40 Ur Specific [place] 1.005 (1.005-1.030) 10/10/23 16:40 Urine Protein 1+ (Negative) H 10/10/23 16:40 Urine Glucose (UA) Norm (Normal) 10/10/23 16:40 Urine Ketones 1+ (Negative) H 10/10/23 16:40 Urine Blood 2+ (Negative) H 10/10/23 16:40 Urine Nitrate Negative (Negative) 10/10/23 16:40 Urine Bilirubin Neg (Negative) 10/10/23 16:40 Urine Urobilinogen 1 mg/dL (Negative) H 10/10/23 16:40 Ur Leukocyte Esterase Negative (Negative) 10/10/23 16:40 Urine RBC 0-4 /hpf (0-2) H 10/10/23 16:40 Urine WBC None /hpf (0-5) 10/10/23 16:40 Ur Squamous Epith Cells 0-4 /hpf (0-5) H 10/10/23 16:40 Amorphous Sediment Not Reportable 10/10/23 16:40 Urine Bacteria None /hpf (NONE) 10/10/23 16:40 Urine Mucus None /hpf 10/10/23 16:40 Vancomycin Trough 16.1 ug/mL (10-15) H 10/13/23 10:19 Urine Opiates Screen Positive ng/mL (Negative) H 10/10/23 16:40 Ur Barbiturates Screen Negative ng/mL (Negative) 10/10/23 16:40 Ur Phencyclidine Scrn Negative ng/mL (Negative) 10/10/23 16:40 Ur Amphetamines Screen Positive ng/mL (Negative) H 10/10/23 16:40 U Benzodiazepines Scrn Negative ng/mL (Negative) 10/10/23 16:40 Urine Cocaine Screen Negative ng/mL (Negative) 10/10/23 16:40 U Marijuana (THC) Screen Positive ng/mL (Negative) H 10/10/23 16:40 Vitals Last Vital Signs Temp 98.2 F 10/13/23 08:00 Pulse 80 10/13/23 11:22 Resp 14 10/13/23 11:22 BP 139/75 10/13/23 08:00 Pulse Ox 92 10/13/23 11:22 O2 Del Method Room Air 10/13/23 11:22 O2 Flow Rate 2 10/11/23 20:30 Discharge Plan Discharge Patient Disposition: Left Against Medical Advice Condition: Stable Prescriptions: No Action (DME) night splint See Rx Instructions .Route .MEDSUPPLY Qty: 1 0RF Rx Instructions: As directed trazodone 150 mg tablet 150 mg PO DAILY ibuprofen 800 mg tablet 800 mg PO TID duloxetine [Cymbalta] 60 mg capsule,delayed release(DR/EC) 60 mg PO BID gabapentin 600 mg Tablet 600 mg PO TID metoprolol tartrate 25 mg tablet 25 mg PO BID Referrals: Esther Lincoln DO [Primary Care Provider] - Patient Instructions: Pain Management Activity Restrictions/Additional Instructions: Thank you for [facility] for your care! The following is a list of instructions, from your provider, to follow upon your discharge to ensure you have the optimal recovery from your recent injury orsurgery. Follow-up care is a fuller part of your treatment and safety. Be sure to make and go to all appointments, and call your doctor if you are having problems. If you do not already have a follow-up appointment made, call Dr. Vargas office in the next 1-3 days to make follow up appointment for 2 weeks at [phone]. It is also a good idea to know your test results and keep a list of the medicines you take. Medications will be prescribed for you at your provider's discretion. These medications are to be used as instructed; if they are taken more often that prescribed they will not be refilled early and in most cases will not be refilled at all. > When a refill is needed,you should contact nithya reeves 2-3 business days before your prescription runs out. Medications will NOT be refilled by jewelry salesperson providers after hours! > Many pain medications contain Tylenol (Acetaminophen). Do not consume more than 4,000 mg of Tylenol per day in total with any combination ofmedications. > Pain medications can cause constipation. Please use an over the counter stool softener as directed, while taking pain medications. Consulty our local pharmacist with questions or recommendations on stool softeners. If constipation persists, contact our office or your primary care provider. > While under our care,you are not to receive pain medications or other controlled substances from any other provider unless our office is notified and approves. Any attempts to do so will result in refusal to prescribe any further pain medications and possible dismissal from our practice. ? Your wound and/or dressing should remain clean and dry for 2 days after surgery. On postoperative day 2 (48 hours after your surgery) the dressing (if present) should be removed and it is okay to shower and get the incision wet. Pad dry afterwards. No further dressing should be required from that point on. Do not put any creams or ointments on theincision > It is normal for there to be a small amount of discharge (bloody or blood tinged) present from a surgical wound for the first 1-3days. > The wound should be examined twice a day for signs of infection. Mild redness or bruising is to be expected but indications that an infection maybe starting would include; An increase in redness, swelling, or discharge, a foul odor present around the incision, and/or a fever greater than 101 ?F ? Showering is permitted, however we ask that you do not take a bath, sit in a whirlpool / Jacuzzi, or go swimming for 1 month. For only the first 2 days after surgery, lt wilt be necessary for you to cover your wound/dressing with plastic and tape to keep it dry. ? Walking is essential for the healing process after surgery. We would like you to slowly advance your walking. This should be done on relatively flat clear ground (inside or out) or can be done on a treadmill. Remember this goal does not have to happen all at once, slowly increase your distance and duration. This can be broken into more more than one walk per day as tolerated. Patients who walk as directed after surgery rarely require Physical Therapy. In the unlikely event this issue arises your provider will direct hospital staff to make the appropriate arrangements. ? No lifting over 5 pounds {a gallon of milk) or bending/twisting until further notice. Each of these activities places an unnecessary amount of stress onto the body and can impede the delicate healing process. > Instead of bending at the waist, keep your back straight and bend at the knees. > Instead of twisting your torso, keep your back straight and turn your entire body with your feet. ? You may sleep in any position which makes you comfortable. Many patients find comfort sleeping in a reclining chair. It is not abnormal to have difficulty sleeping for the first several weeks following your surgery. We recommend trying Benadry! or Tylenol PM as directed to help with your sleeping difficulties. Both medications are over the counter and available withoutprescription. ? NO SMOKING!!! Smoking dramatically increases the probability of developing postoperative wound infections. ? Common complaints after lumbar and/or thoracic spine surgery include, but are not limited to: numbness and/or tingling in the legs, pain around the incision and surrounding tissues, muscle spasms, or stiffness of the middle to low back. Contact our office if these symptoms persist or if an acute change occurs. ? No driving for the first 3-5days, and not while taking narcotics until seen at your follow-up appointment and cleared. There are no restrictions for riding on short trips, however if you take a longer trip, arrangements should be made to make regular stops to get out of the vehicle and stretch . ? Swelling is an unfortunate event that will take place with any surgery and is the primary source of your postoperative discomfort. While walking and regular approved activities helps control inflammation, there are additional steps you can take to minimizeswelling. > Place ice over the surgical site and surrounding tissue for twenty minutes, followed by applying a low/medium heat (heating pad) for an additional twenty minutes every 1-2 hours as needed for painrelief. > You may use of over the counter anti-inflammatory medications (Ibuprofen, Motrin, Aleve, Advil, etc) as directed on the package label. These types of medicines wm significantly reduce the amount of discomfort you experience after surgery from swelling. It should be noted that if you have and allergy to any of these medications, or a history of ulcers or kidney disease you should consult you primary care provider prior to starting these medications. Discharge Attestations Time Spent in Discharge Care*: greater than 30 min Quality Metrics Clinical Quality Measures [ No reported AMI, CVA or VTE this stay] Coding Level of Care Code Acute Code for Chg Fwd Diagnoses Polysubstance abuse F19.10 Cauda equina compression G83.4 Status post lumbar laminectomy Z98.890 Spinal abscess M46.20
--- NOTE | 2023-10-16 10:31 | PC.NURSE ---
patient left AMA. Patient verbalized understanding of risks of leaving AMA. Patient had no IV access. patient was wheeled to the ER entrance by security.
== END 2023-10-16 09:25 | disposition left against medical advice (07) | DRG 29 ==
LOC: ER 17:13 → ICU 17:46 → MEDSURG 10-12 18:46
PROVIDERS: Orthopaedic Surgery; Admitting Provider Internal Medicine; Emergency Provider Physician Assistant; PCP Family Medicine; Visit Provider Internal Medicine
PROC: 01NB0ZZ Release Lumbar Nerve, Open Approach (ICD-10-PCS; CPT 63001; principal; 2023-10-11 16:15)
DX: G83.4 Cauda equina syndrome (principal); M46.36 Infection of intervertebral disc (pyogenic), lumbar region; B95.62 Methicillin resistant Staphylococcus aureus infection as the cause of diseases classified elsewhere; Z72.0 Tobacco use; I10 Essential (primary) hypertension; M48.062 Spinal stenosis, lumbar region with neurogenic claudication; M51.26 Other intervertebral disc displacement, lumbar region; F15.10 Other stimulant abuse, uncomplicated; F11.10 Opioid abuse, uncomplicated; F12.10 Cannabis abuse, uncomplicated; F41.9 Anxiety disorder, unspecified; F32.A Depression, unspecified
CPT/HCPCS: 36415; 36416; 51702; 71045; 72020; 72148; 74177; 76000; 80048; 80053; 80202; 80306; 81001; 82962; 85025; 86140; 87040; 87070; 87075; 87077; 87176; 87186; 87205; 93005; 96365; 96372; 96375; 96376; 97116; 97161; 97530; 99285; J0690; J1100; J1170; J1630; J1650; J1885; J2060; J2270; J2405; J2560; J2704; J2710; J3010; J3370; J3411; J3490; J7050; Q9967

== ENCOUNTER 2023-10-18 11:29 | Emergency (ER) | payer MEDICAID, SELFPAY ==
[2023-10-18 12:04] VITALS: BP 195/80; PULSE 131; RESP 18; TEMP 37.3; O2SAT 99
[2023-10-18 13:30] LABS: Basophils % 0.1 %; Eosinophils # 0.1 10^3/uL (0.0-0.8); Eosinophils % 0.7 %; Lymphocytes # 1.1 10^3/uL (0.8-4.8); Lymphocytes % 12.7 %; Mean Corpuscular Hemoglobin 29.1 pg (27-33); Mean Corpuscular Volume 88.2 fl (85-98); Mean Platelet Volume 8.7 fL (7.4-10.4); Monocytes # 0.7 10^3/uL (0.2-0.9); Monocytes % 8.3 %; Neutrophils # 6.84 10^3/uL (1.8-7.7); Neutrophils % 77.3 %; Nucleated Red Blood Cells % 0 %; Platelet Count 358 10^3/cmm (157-399); Red Cell Distribution Width 15.1 % (12.1-15.1); White Blood Count 8.84 10^3/uL (3.29-11.43)
--- NOTE | 2023-10-18 13:32 | W.ED.GENADLT ---
HPI - General Adult General: Chief complaint: General Medical Stated complaint: pt has staff left AMA 2days ago Time Seen by Provider: 10/18/23 13:18 History of Present Illness: Patient presents to the ER with complaints of right lower quadrant/pelvic pain. Patient left AMA from this hospital 2 days ago after having spinal surgery and possible spinal abscess. She left AMA before they could set up to get her IV antibiotics for the next 6 weeks however per record it appears that some were called in. Patient says she did not get those filled and therefore she has been taking nothing for the last 2 days. Patient says her right lower quadrant down into her pelvis is hurting now. Patient says she had a total hysterectomy. But it feels like where her ovaries should be it is hurting. This been going on for the last day. Discussed case with Dr. Gallardo who said for her history she had spinal decompression secondary to cauda equina syndrome at [facility] left there AMA came here with a spinal abscess which they opened and drained and then left AMA. She was going to be put on long-term IV antibiotics but they declined to do that secondary to history of IV drug use so then he was going to set her up with a long-term 6 weeks of oral antibiotics and put her in a fdc for rehab but then she left AMA. Review of Systems General: Reports: 10 or more systems reviewed and unremarkable except in HPI and below PFSH ED PFSH: Medical History Spinal abscess Polysubstance abuse Cauda equina compression Hypertension Surgical History Status post lumbar laminectomy H/O Spinal surgery Social History Smoking and tobacco/nicotine status: current every day tobacco/nicotine user Quit status (tobacco/nicotine): considering quitting Second hand smoke exposure: No Alcohol intake: current Alcohol intake frequency: holidays/special occasions only Alcohol type: other Substance/Drug Use: never Adopted: No Caregiver/support person: No Lives independently: Yes Household members: other Details: guardan of grandkids Housing: House Marital status: Single Number of children: 2 Number of grandchildren: 5 Highest education level completed: High School Graduate service: No Current occupational status: disabled Current occupational exposures/hazards: No Pets and animals: Yes Leisure activites: exercise, fishing, reading and volunteer work Sexually active: No Do you think of yourself as: Straight/Heterosexual Current gender identity: Female Balbina/Methodist: Hinduism Special balbina needs: No Agree to transfusion: Yes Physical Exam Const: COMMON NORMALS: no acute distress, average body habitus, patient oriented x3, no limitations, healthy appearing, alert and well nourished HENMT: COMMON NORMALS: normocephalic, atraumatic, hearing grossly normal bilaterally, external ears normal, Normal external nose present, moist oral mucous membranes and oropharynx normal HEAD & SCALP: normocephalic and atraumatic NOSE: Normal external nose present EXTERNAL EAR: Yes external ears normal Neck/C-Spine: COMMON NORMALS: full ROM, no lymphadenopathy, supple, no meningeal signs, no JVD and Thyroid normal THYROID: Thyroid normal Chest: COMMONS NORMALS: normal inspection of the chest and normal palpation of entire chest wall Resp: COMMON NORMALS: normal respiratory effort, No retractions, No use of accessory muscles and clear to auscultation bilaterally AUSCULTATION: clear to auscultation bilaterally Cardio: COMMON NORMALS: no JVD, regular rate (Mildly tachycardic), regular rhythm, S1 normal heart sound present, S2 normal heart sound present, No gallops present (Cardio), No clicks present (Cardio) and No rub (Cardio); negative for No murmurs present (Cardio) (2/6 systolic ejection murmur) RATE: regular rate (Mildly tachycardic) RHYTHM: regular rhythm HEART SOUNDS: S1 normal heart sound present and S2 normal heart sound present GI: COMMON NORMALS: Normal to inspection, nondistended, normoactive bowel sounds present, Soft to palpation, No hepatosplenomegaly present and no masses; negative for non-tender (Tender down deep right lower quadrant/pelvic region) PALPATION: Yes Soft to palpation and Yes No hepatosplenomegaly present Neuro: COMMON NORMALS: patient oriented x3 SENSORIUM/ORIENTATION: Yes alert MENINGEAL SIGNS: Yes no meningeal signs Course Vital Signs: Vital signs: Vital Signs Temperature 99.1 F 10/18/23 12:04 Pulse Rate 131 H 10/18/23 12:04 Respiratory Rate 18 10/18/23 12:04 Blood Pressure 195/80 10/18/23 12:04 Pulse Oximetry 99 10/18/23 12:04 Oxygen Delivery Me thod Room Air 10/18/23 12:04 MDM - General Adult Medical Decision Making Patient had lab work done that included but not limited to CBC CMP lipase urinalysis and urine drug screen. White count was 9.9, BUN/creatinine was 11 and 0.4, potassium 2.8, lipase 57, urine negative, urine drug screen positive for marijuana, benzos, amphetamines, barbiturates contrasted CT scan of the abdomen pelvis did not show any cause of acute abdominal pain. Dr. Gallardo was consulted as he was the discharging physician when she left AMA. He states she has pain medicine and antibiotics linezolid called into her pharmacy. Patient be discharged from the ER and is to go to her pharmacy to pick these up as well as the new prescription for potassium for her hypokalemia. Differential Diagnosis Spinal abscess, noncompliant with antibiotics, tachycardia Medical Records I reviewed the patient's medical records. Lab Data I reviewed the patient's lab results. 10/18/23 13:25 10/18/23 13:25 Laboratory Results WBC 8.84 10^3/uL (3.29-11.43) 10/18/23 13:25 RBC 3.40 10^6/uL (3.85-5.65) L 10/18/23 13:25 Hgb 9.90 g/dL (11.27-16.99) L 10/18/23 13:25 Hct 30.0 % (36-47) L 10/18/23 13:25 MCV 88.2 fl (85-98) 10/18/23 13:25 MCH 29.1 pg (27-33) 10/18/23 13:25 MCHC 33.0 g/dL (30-55) 10/18/23 13:25 RDW 15.1 % (12.1-15.1) 10/18/23 13:25 Plt Count 358 10^3/cmm (157-399) 10/18/23 13:25 MPV 8.7 fL (7.4-10.4) 10/18/23 13:25 Neut % (Auto) 77.3 % 10/18/23 13:25 Lymph % (Auto) 12.7 % 10/18/23 13:25 Angelina % (Auto) 8.3 % 10/18/23 13:25 Eos % (Auto) 0.7 % 10/18/23 13:25 Baso % (Auto) 0.1 % 10/18/23 13:25 Neut # (Auto) 6.84 10^3/uL (1.8-7.7) 10/18/23 13:25 Lymph # (Auto) 1.1 10^3/uL (0.8-4.8) 10/18/23 13:25 Angelina # (Auto) 0.7 10^3/uL (0.2-0.9) 10/18/23 13:25 Eos # (Auto) 0.1 10^3/uL (0.0-0.8) 10/18/23 13:25 Baso # (Auto) 0.0 10^3/uL (0.0-0.1) 10/18/23 13:25 Nucleated RBC % (auto) 0 % 10/18/23 13:25 Nucleated RBCs # 0.0 /100WBC 10/18/23 13:25 Sodium 141 mmol/L (136-145) 10/18/23 13:25 Potassium 2.8 mmol/L (3.5-5.1) L* 10/18/23 13:25 Chloride 105 mmol/L (98-107) 10/18/23 13:25 Carbon Dioxide 22 mmol/L (22-29) 10/18/23 13:25 Anion Gap 16.8 (5-19) 10/18/23 13:25 BUN 11 mg/dL (6-20) 10/18/23 13:25 Creatinine 0.4 mg/dL (0.5-0.9) L 10/18/23 13:25 GFR Calculation 167.6 mL/min (90-130) H 10/18/23 13:25 Glucose 137 mg/dL (65-115) H 10/18/23 13:25 Calculated Osmolality 294 mOsm/kg (285-295) 10/18/23 13:25 Calcium 8.5 mg/dL (8.5-10.5) 10/18/23 13:25 Total Bilirubin 0.3 mg/dL (0.15-1.2) 10/18/23 13:25 AST 17 U/L (0-32) 10/18/23 13:25 ALT 16 U/L (0-33) 10/18/23 13:25 Alkaline Phosphatase 65 U/L (35-105) 10/18/23 13:25 Total Protein 7.0 g/dL (6.6-8.7) 10/18/23 13:25 Albumin 3.3 g/dL (3.5-5.2) L 10/18/23 13:25 Globulin 3.7 g/dL (1.3-4.6) 10/18/23 13:25 Lipase 57 U/L (13-60) 10/18/23 13:25 Urine Color Yellow (Yellow) 10/18/23 15:00 Urine Appearance Clear (CLEAR) 10/18/23 15:00 Urine pH 7 (5-7) 10/18/23 15:00 Ur Specific [place] 1.010 (1.005-1.030) 10/18/23 15:00 Urine Protein Neg (Negative) 10/18/23 15:00 Urine Glucose (UA) Norm (Normal) 10/18/23 15:00 Urine Ketones Negative (Negative) 10/18/23 15:00 Urine Blood Neg (Negative) 10/18/23 15:00 Urine Nitrate Negative (Negative) 10/18/23 15:00 Urine Bilirubin Neg (Negative) 10/18/23 15:00 Urine Urobilinogen 4 mg/dL (Negative) H 10/18/23 15:00 Ur Leukocyte Esterase Negative (Negative) 10/18/23 15:00 Urine Opiates Screen Negative ng/mL (Negative) 10/18/23 15:00 Ur Barbiturates Screen Positive ng/mL (Negative) H 10/18/23 15:00 Ur Phencyclidine Scrn Negative ng/mL (Negative) 10/18/23 15:00 Ur Amphetamines Screen Positive ng/mL (Negative) H 10/18/23 15:00 U Benzodiazepines Scrn Positive ng/mL (Negative) H 10/18/23 15:00 Urine Cocaine Screen Negative ng/mL (Negative) 10/18/23 15:00 U Marijuana (THC) Screen Positive ng/mL (Negative) H 10/18/23 15:00 All radiology interpretation(s) finalized by discharge Discharge Plan Discharge Patient Disposition: Home Clinical Impression: Acute hypokalemia, Polysubstance abuse Abdominal pain Qualifiers: Abdominal location: unspecified location Qualified Code(s): R10.9 - Unspecified abdominal pain Condition: Stable Prescriptions: New potassium chloride 20 mEq tablet extended release 20 meq PO BID Qty: 14 0RF No Action (DME) night splint See Rx Instructions .Route .MEDSUPPLY Qty: 1 0RF Rx Instructions: As directed trazodone 150 mg tablet 150 mg PO DAILY ibuprofen 800 mg tablet 800 mg PO TID duloxetine [Cymbalta] 60 mg capsule,delayed release(DR/EC) 60 mg PO BID gabapentin 600 mg Tablet 600 mg PO TID metoprolol tartrate 25 mg tablet 25 mg PO BID Discharge Orders: Discharge ED (Routine); Ordered 10/18/23 Ordered By: Tomy Aguirre Referrals: Esther Lincoln DO [Primary Care Provider] - 1 week Patient Instructions: Hypokalemia (ED), Abdominal Pain (ED), Polysubstance Use Disorder (ED) Activity Restrictions/Additional Instructions: Your evaluation in the ER that included lab work urinalysis and CT scan of your abdomen pelvis did not reveal any acute cause of your abdominal pain. Your white blood cell count was normal, your potassium was low, urinalysis showed positive for THC, barbiturates, benzos, and amphetamines. Please not use any illegal substances. When you left AMA this last time the doctor called you in antibiotics for your back and pain medicine. We will call you in some potassium for your low potassium. Please go to your pharmacy and pick all of these up and start taking them as directed immediately. Coding Level of Care Code ED Recycling Operations Manager for Dre Mendiola
--- NOTE | 2023-10-18 13:48 | CT_ITS ---
WS: [id number] CT ABDOMEN AND PELVIS WITH CONTRAST HISTORY: rlq abd pain, recent spinal surgery TECHNIQUE: Imaging performed of the abdomen and pelvis with IV contrast. Single phase imaging of the abdomen. Coronal and sagittal reformats are submitted. All CT scans at [facility] use at [address] one of these dose optimization techniques: automated exposure control; mA and/or kV adjustment per patient size (includes targeted exams where dose is matched to clinical indication); or iterative re construction. IV CONTRAST: Omnipaque 350; 100 mL IV. Oral contrast: No DLP: 552.27 mGy.cm COMPARISON: 10/10/2023 Lower thorax: Lung bases are clear. Heart is normal size. No hiatal hernia. Liver/biliary system: Normal size with no intrahepatic dilatation. Gallbladder: Normal. No gallstones or wall thickening. No pericholecystic fluid. Pancreas: Normal size pancreas and pancreatic duct. No adjacent inflammation. Spleen: Normal size spleen. No mass or infarct. Adrenal glands: Normal. Right kidney: Normal. Left kidney: Normal size kidney. 1.4 cm cyst superior pole. There are additional smaller, too small t o characterize hypodensities within the kidney. No obstruction. Aorta: Normal. Lymphadenopathy: None. Free fluid: None. GI tract: There is marked distention of the stomach with fluid and air. Small amount of increased flu id in the proximal duodenum. No obstructive pattern. The appendix is not definitely identified but th ere are no secondary findings of appendicitis. Abdominal wall: Unremarkable abdominal wall. No hernia. Pelvis: No free fluid or adenopathy within the pelvis. Bones: Extensive posterior decompressive surgery in the lumbar spine is identified. Large laminectomy defect extends from L3-S1. Postsurgical collections along the surgical site and through the laminect ruth ann defects containing air. There is a superficial subcutaneous collection with peripheral enhancemen t centered at the L4-5 level measuring 2.4 x 3.6 cm and extends towards the laminectomy defect. There is some enhancement of the wall of this collection. Numerous foci of air along the laminectomy site but also in the epidural space. IMPRESSION: 1. Recent postoperative changes of spinal decompression from L3-S1. There are complex fluid collecti ons containing air and some enhancement along the laminectomy sites. This may very well be abscess. P ostoperative fluid collections may appear similar. Abscess at the surgical site is not excluded. 2. Marked fluid distention of the stomach suggesting mild gastroparesis versus recent ingestion of f luid and food. 3. No mass or abscess in the RIGHT lower quadrant. Notified Tomy Aguirre DO at 10/18/2023 2:49 PM.
[2023-10-18 13:55] LABS: Alanine Aminotransferase 16 U/L (0-33); Albumin Level 3.3 g/dL (3.5-5.2); Alkaline Phosphatase 65 U/L (35-105); Anion Gap 16.8 (5-19); Aspartate Amino Transferase 17 U/L (0-32); Blood Urea Nitrogen 11 mg/dL (6-20); Calcium 8.5 mg/dL (8.5-10.5); Carbon Dioxide 22 mmol/L (22-29); Chloride 105 mmol/L (98-107); Globulin 3.7 g/dL (1.3-4.6); Glomerular Filtration Rate 167.6 mL/min (90-130); Glucose 137 mg/dL (65-115); Lipase 57 U/L (13-60); Osmolality Calculated 294 mOsm/kg (285-295); Sodium 141 mmol/L (136-145); Total Bilirubin 0.3 mg/dL (0.15-1.2)
[2023-10-18 14:11] LABS: Potassium 2.8 mmol/L (3.5-5.1)
--- NOTE | 2023-10-18 14:25 | PC.PHAR ---
MED LIST SHOWS TRAMADOL 100 MG PRESCRIBED ON 10/16/23. [facility] [place] AND [facility] NEITHER ONE HAVE RECEIVED RX FOR THIS MEDICATION. PT IS UNAWARE OF ANY RX FOR TRAMADOL. REMOVED FROM MED PROFILE. 10/18/23
[2023-10-18] MEDS: iohexol 350 mg/mL 500 mL Btl (per mL) IV (14:34)
[2023-10-18] MEDS: potassium chloride ER 20 mEq Tablet 40 MEQ PO (14:58)
[2023-10-18] MEDS: sodium chloride 0.9% 1,000 ML 999 ML IV (14:58)
[2023-10-18 15:08] LABS: Add Urine Microscopic? NO; Charge for UA Resulting for Rev
[2023-10-18 15:19] LABS: Bilirubin Urine Neg (Negative); Blood Urine Neg (Negative); Glucose Urine UA Norm (Normal); Ketones Urine Negative (Negative); Leukocyte Esterase Urine Negative (Negative); Nitrate Urine Negative (Negative); Protein Urine Neg (Negative); Urine Appearance Clear (CLEAR); Urine Color Yellow (Yellow); Urobilinogen Urine 4 mg/dL (Negative); pH Urine 7 (5-7)
[2023-10-18] MEDS: HYDROcodone-acetaminophen 5-325 mg Tablet 1 TAB PO (15:19)
[2023-10-18 15:28] LABS: Amphetamines Screen Urine Positive (Negative); Barbiturates Screen Urine Positive (Negative); Benzodiazepines Screen Urine Positive (Negative); Cocaine Screen Urine Negative (Negative); Opiate Screen Urine Negative (Negative); PCP Screen Urine Negative (Negative); THC Screen Urine Positive (Negative)
== END 2023-10-18 16:40 | disposition home or self-care (01) ==
PROVIDERS: Emergency Provider Emergency Medicine; PCP Family Medicine
DX: R10.31 Right lower quadrant pain (principal); R10.2 Pelvic and perineal pain; E87.6 Hypokalemia; F19.10 Other psychoactive substance abuse, uncomplicated; Z72.0 Tobacco use; I10 Essential (primary) hypertension
CPT/HCPCS: 36415; 74177; 80053; 80306; 81003; 83690; 85025; 87040; 99285; J7030; Q9967

== ENCOUNTER 2023-10-19 04:51 | Emergency (ER) | payer MEDICAID, SELFPAY ==
[2023-10-19] VITALS (20 sets, daily range): BP systolic 121–161; BP diastolic 67–109; PULSE 95–127; RESP 15–24; TEMP 36.7; O2SAT 15–100; BMI 29.7
--- NOTE | 2023-10-19 06:07 | ED_ITS ---
Documented by User: Jacky Yepez MD 10/19/23 06:13 HPI - Back Pain/Injury 2 General: Chief Complaint: Back Pain/Injury Stated Complaint: back pain Time Seen by Provider: 10/19/23 05:12 History of Present Illness: 53-year-old female presents emergency de partment via EMS personnel secondary to complaints of worsening back pain. She was previously seen approximately 2 months ago at [facility] received a spinal decompression surgery and was found to have left AGAINST MEDICAL ADVICE at that time. Per the patient she states she had an infection when she left AMA and then came to this hospital was admitted and found to have a spinal abscess at which time she was admitted to the hospital orthopedic surgery was consulted and Dr. Vargas evaluated and treated the patient. Patient was provided antibiotics while in the hospital and again left AGAINST MEDICAL ADVICE. Patient states she did not receive any pain medications when she left AMA she states she did not sampler pickup any antibiotic prescriptions. She did present to the emergency department yesterday and was seen for abdominal pain and was ultimately discharged. Patient returns today with complaints of increased pain she is very tearful and upset. EMS personnel provided her 50 mcg of intramuscular fentanyl during transport. Patient states that she does have cramping to her upper legs and gluteus area. She states her current pain is a 10 out of 10 constant cramping type pain. She denies bowel or bladder incontinence or retention at present. She denies decreased sensation. Review of Systems 2 General: Reports: 10 or more systems reviewed and unremarkable except in HPI and below Musc: Reports: back pain [facility] ED 2 PFSH: Medical History Spinal abscess Polysubstance abuse Cauda equina compression Hypertension Surgical History Status post lumbar laminectomy H/O Spinal surgery Social History Smoking and tobacco/nicotine status: current every day tobacco/nicotine user Quit status (tobacco/nicotine): considering quitting Second hand smoke exposure: No Alcohol intake: current Alcohol intake frequency: holidays/special occasions only Alcohol type: other Substance/Drug Use: never Adopted: No Caregiver/support person: No Lives independently: Yes Household members: other Details: guardan of [place] Housing: House Marital status: Single Number of children: 2 Number of grandchildren: 5 Highest education level completed: High School Graduate service: No Current occupational status: disabled Current occupational exposures/hazards: No Pets and animals: Yes Leisure activites: exercise, fishing, reading and volunteer work Sexually active: No Do you think of yourself as: Straight/Heterosexual Current gender identity: Female Balbina/Jehovah'S Witness: Buddhism Special balbina needs: No Agree to transfusion: Yes Physical Exam 2 Narrative: EXAM NARRATIVE: Constitutional: the patient appears well nourished and with normal development. Vital signs reviewed as documented. HENMT: Normocephalic, atraumatic. External ears normal appearance without drainage. Nose without drainage, normal appearance. Mucus membranes moist. Neck is supple, No jugular venous distension, trachea is midline, no appreciable carotid bruits. No lymphadenopathy. No meningeal signs. Flexion, extension and lateral rotation is without pain. Eyes: Pupils are equal, round, reactive to light and accommodation. No scleral icterus. Extra-ocular movement are intact. Thorax is symmetrical and with equal rise and fall with respirations. Resp: Lungs are clear to auscultation. No wheezes, rales, crackles or ronchi at present. Cardio: Regular rate and rhythm. Positive S1, S2. No appreciable murmurs, rubs or gallops. GI: Abdominal exam reveals normal bowel sounds to all quadrants. No organomegaly. No obvious palpable masses noted. No hepatomegally appreciated. Soft, non-tender to palpation. Extremity: Extremities are non-edematous and both femoral and pedal pulses are 2+ and equal bilaterally. Moves all extremities well, sensation in all extremities. Neuro: Alert and oriented x4, person, place, time and situation. Cranial nerves II through XII are grossly intact, there is no focal neurological deficits that I can appreciate at present. Sensation is intact to the bilateral lower extremities. Motor strength in the upper and lower extremities are equal and bilateral 5/5. Psych: Cooperative, calm, normal thought process, appropriate judgment. Skin: No lesions, rashes. No gross abnormalities noted. Back: Symmetrical, no obvious deformity, No CVA tenderness. Patient does have a well-healing postoperative surgical wound to the lower back that has Steri- Strips and is well approximated. There is no obvious signs of infection to include erythema or drainage. Course 2 Vital Signs: Vital signs: Vital Signs Temperature 98.0 F 10/19/23 04:51 Pulse Rate 108 H 10/19/23 15:00 Respiratory Rate 18 10/19/23 19:41 Blood Pressure 140/82 10/19/23 15:00 Pulse Oximetry 97 10/19/23 18:11 Oxygen Delivery Me thod Room Air 10/19/23 15:00 MDM - Back Pain/Injury Medical Decision Making I have discussed the patient's case with the on-coming physician <Dr. Greco > and they have assumed care of the patient. We have discussed the current lab/radiographic results that have been resulted and the pending tests. Labs 10/19/23 06:07 10/19/23 06:07 Laboratory Results WBC 13.73 10^3/uL (3.29-11.43) H 10/19/23 06:07 RBC 3.43 10^6/uL (3.85-5.65) L 10/19/23 06:07 Hgb 10.00 g/dL (11.27-16.99) L 10/19/23 06:07 Hct 30.5 % (36-47) L 10/19/23 06:07 MCV 88.9 fl (85-98) 10/19/23 06:07 MCH 29.2 pg (27-33) 10/19/23 06:07 MCHC 32.8 g/dL (30-55) 10/19/23 06:07 RDW 15.0 % (12.1-15.1) 10/19/23 06:07 Plt Count 436 10^3/cmm (157-399) H 10/19/23 06:07 MPV 8.7 fL (7.4-10.4) 10/19/23 06:07 Neut % (Auto) 76.3 % 10/19/23 06:07 Lymph % (Auto) 13.9 % 10/19/23 06:07 Anson % (Auto) 7.6 % 10/19/23 06:07 Eos % (Auto) 0.9 % 10/19/23 06:07 Baso % (Auto) 0.2 % 10/19/23 06:07 Neut # (Auto) 10.47 10^3/uL (1.8-7.7) H 10/19/23 06:07 Lymph # (Auto) 1.9 10^3/uL (0.8-4.8) 10/19/23 06:07 Anson # (Auto) 1.0 10^3/uL (0.2-0.9) H 10/19/23 06:07 Eos # (Auto) 0.1 10^3/uL (0.0-0.8) 10/19/23 06:07 Baso # (Auto) 0.0 10^3/uL (0.0-0.1) 10/19/23 06:07 Nucleated RBC % (auto) 0 % 10/19/23 06:07 Nucleated RBCs # 0.0 /100WBC 10/19/23 06:07 ESR 56 mm/hr (0-15) H 10/19/23 06:07 PT 14.00 SECONDS (12.1-14.9) 10/19/23 06:07 INR 1.05 (0.8-1.2) 10/19/23 06:07 APTT 38.3 SECONDS (23.9-36.7) H 10/19/23 06:07 Sodium 134 mmol/L (136-145) L 10/19/23 06:07 Potassium 3.1 mmol/L (3.5-5.1) L 10/19/23 06:07 Chloride 101 mmol/L (98-107) 10/19/23 06:07 Carbon Dioxide 21 mmol/L (22-29) L 10/19/23 06:07 Anion Gap 15.1 (5-19) 10/19/23 06:07 BUN 9 mg/dL (6-20) 10/19/23 06:07 Creatinine 0.4 mg/dL (0.5-0.9) L 10/19/23 06:07 GFR Calculation 167.6 mL/min (90-130) H 10/19/23 06:07 Glucose 130 mg/dL (65-115) H 10/19/23 06:07 Calculated Osmolality 278 mOsm/kg (285-295) L 10/19/23 06:07 Lactic Acid 1.0 mmol/L (0.5-2.2) 10/19/23 06:07 Calcium 8.6 mg/dL (8.5-10.5) 10/19/23 06:07 Magnesium 1.9 mg/dL (1.7-2.3) 10/19/23 06:07 Total Bilirubin 0.6 mg/dL (0.15-1.2) 10/19/23 06:07 AST 13 U/L (0-32) 10/19/23 06:07 ALT 17 U/L (0-33) 10/19/23 06:07 Alkaline Phosphatase 72 U/L (35-105) 10/19/23 06:07 C-Reactive Protein 147.3 mg/L (0.0-4.9) H 10/19/23 06:07 Total Protein 7.3 g/dL (6.6-8.7) 10/19/23 06:07 Albumin 3.3 g/dL (3.5-5.2) L 10/19/23 06:07 Globulin 4.0 g/dL (1.3-4.6) 10/19/23 06:07 Procalcitonin 39.45 ng/mL (0-0.5) H 10/19/23 06:07 Urine Color Yellow (Yellow) 10/19/23 06:01 Urine Appearance Clear (CLEAR) 10/19/23 06:01 Urine pH 7 (5-7) 10/19/23 06:01 Ur Specific [place] 1.010 (1.005-1.030) 10/19/23 06:01 Urine Protein Neg (Negative) 10/19/23 06:01 Urine Glucose (UA) Norm (Normal) 10/19/23 06:01 Urine Ketones Negative (Negative) 10/19/23 06:01 Urine Blood Neg (Negative) 10/19/23 06:01 Urine Nitrate Negative (Negative) 10/19/23 06:01 Urine Bilirubin Neg (Negative) 10/19/23 06:01 Urine Urobilinogen 1 mg/dL (Negative) H 10/19/23 06:01 Ur Leukocyte Esterase Negative (Negative) 10/19/23 06:01 Urine Opiates Screen Positive ng/mL (Negative) H 10/19/23 06:01 Ur Barbiturates Screen Positive ng/mL (Negative) H 10/19/23 06:01 Ur Phencyclidine Scrn Negative ng/mL (Negative) 10/19/23 06:01 Ur Amphetamines Screen Positive ng/mL (Negative) H 10/19/23 06:01 U Benzodiazepines Scrn Negative ng/mL (Negative) 10/19/23 06:01 Urine Cocaine Screen Negative ng/mL (Negative) 10/19/23 06:01 U Marijuana (THC) Screen Positive ng/mL (Negative) H 10/19/23 06:01 All radiology interpretation(s) finalized by discharge Discharge Plan Discharge Patient Disposition: Xfer Short-Term Hosp Clinical Impression: Abscess of lower back, Polysubstance abuse Condition: Stable Referrals: Esther Lincoln DO [Primary Care Provider] - Sign Out Sign Out Data: Patient Sign Out occurred on 10/19/23 at 06:40. Patient's care was discussed, and care was transferred from Jacky Yepez MD to Juliocesar Greco DO. Coding Level of Care Code ED Radiation Monitor for Chg Fwd Documented by User: Juliocesar Greco DO 10/20/23 06:57 HPI - Back Pain/Injury 2 General: Chief Complaint: Back Pain/Injury Stated Complaint: back pain Time Seen by Provider: 10/19/23 05:12 [facility] ED 2 PFSH: Medical History Spinal abscess Polysubstance abuse Cauda equina compression Hypertension Surgical History Status post lumbar laminectomy H/O Spinal surgery Social History Smoking and tobacco/nicotine status: current every day tobacco/nicotine user Quit status (tobacco/nicotine): considering quitting Second hand smoke exposure: No Alcohol intake: current Alcohol intake frequency: holidays/special occasions only Alcohol type: other Substance/Drug Use: never Adopted: No Caregiver/support person: No Lives independently: Yes Household members: other Details: guardan of grandkids Housing: House Marital status: Single Number of children: 2 Number of grandchildren: 5 Highest education level completed: High School Graduate service: No Current occupational status: disabled Current occupational exposures/hazards: No Pets and animals: Yes Leisure activites: exercise, fishing, reading and volunteer work Sexually active: No Do you think of yourself as: Straight/Heterosexual Current gender identity: Female Balbina/Jehovah'S Witness: Buddhism Special balbina needs: No Agree to transfusion: Yes Course 2 Vital Signs: Vital signs: Vital Signs Temperature 98.0 F 10/19/23 04:51 Pulse Rate 108 H 10/19/23 15:00 Respiratory Rate 18 10/19/23 19:41 Blood Pressure 140/82 10/19/23 15:00 Pulse Oximetry 97 10/19/23 18:11 Oxygen Delivery Me thod Room Air 10/19/23 15:00 MDM - Back Pain/Injury Medical Decision Making I have discussed the patient's case with the on-coming physician <Dr. Greco > and they have assumed care of the patient. We have discussed the current lab/radiographic results that have been resulted and the pending tests. October 19 [id number] Care assumed at change of shift. Significant increase in leukocytosis from yesterday. Chart reviewed patient had Staph aureus grew out of abscess at her lumbar spine with Dr. Vargas and drainage discussed with hospitalist who discharged her when she left here AMA on October 16 they just sent her home with tramadol and a course of linezolid p.o. she has not picked up the p.o. antibiotics. CRP is increasing slightly from her last CRP. Patient was seen yesterday with complaints of abdominal pain her white count at that time was 8.8 she is now 13.7. CT of the lumbar spine pending Reviewed case with Dr. Vargas as well as with Dr. Reyes. Dr. Vargas he is not on-call today. He will not be able to assist with care of the patient. She likely really will require incision and drainage given the CT findings. Initially gave vancomycin and then switched to Ancef written for 2 g every 8 hours per recommendation of Dr. Bravo. Will transfer back to [facility] in [place] where patient initially had her surgery. Medical Records I reviewed the patient's medical records. Labs I reviewed the patient's lab results. 10/19/23 06:07 10/19/23 06:07 Laboratory Results WBC 13.73 10^3/uL (3.29-11.43) H 10/19/23 06:07 RBC 3.43 10^6/uL (3.85-5.65) L 10/19/23 06:07 Hgb 10.00 g/dL (11.27-16.99) L 10/19/23 06:07 Hct 30.5 % (36-47) L 10/19/23 06:07 MCV 88.9 fl (85-98) 10/19/23 06:07 MCH 29.2 pg (27-33) 10/19/23 06:07 MCHC 32.8 g/dL (30-55) 10/19/23 06:07 RDW 15.0 % (12.1-15.1) 10/19/23 06:07 Plt Count 436 10^3/cmm (157-399) H 10/19/23 06:07 MPV 8.7 fL (7.4-10.4) 10/19/23 06:07 Neut % (Auto) 76.3 % 10/19/23 06:07 Lymph % (Auto) 13.9 % 10/19/23 06:07 Anson % (Auto) 7.6 % 10/19/23 06:07 Eos % (Auto) 0.9 % 10/19/23 06:07 Baso % (Auto) 0.2 % 10/19/23 06:07 Neut # (Auto) 10.47 10^3/uL (1.8-7.7) H 10/19/23 06:07 Lymph # (Auto) 1.9 10^3/uL (0.8-4.8) 10/19/23 06:07 Anson # (Auto) 1.0 10^3/uL (0.2-0.9) H 10/19/23 06:07 Eos # (Auto) 0.1 10^3/uL (0.0-0.8) 10/19/23 06:07 Baso # (Auto) 0.0 10^3/uL (0.0-0.1) 10/19/23 06:07 Nucleated RBC % (auto) 0 % 10/19/23 06:07 Nucleated RBCs # 0.0 /100WBC 10/19/23 06:07 ESR 56 mm/hr (0-15) H 10/19/23 06:07 PT 14.00 SECONDS (12.1-14.9) 10/19/23 06:07 INR 1.05 (0.8-1.2) 10/19/23 06:07 APTT 38.3 SECONDS (23.9-36.7) H 10/19/23 06:07 Sodium 134 mmol/L (136-145) L 10/19/23 06:07 Potassium 3.1 mmol/L (3.5-5.1) L 10/19/23 06:07 Chloride 101 mmol/L (98-107) 10/19/23 06:07 Carbon Dioxide 21 mmol/L (22-29) L 10/19/23 06:07 Anion Gap 15.1 (5-19) 10/19/23 06:07 BUN 9 mg/dL (6-20) 10/19/23 06:07 Creatinine 0.4 mg/dL (0.5-0.9) L 10/19/23 06:07 GFR Calculation 167.6 mL/min (90-130) H 10/19/23 06:07 Glucose 130 mg/dL (65-115) H 10/19/23 06:07 Calculated Osmolality 278 mOsm/kg (285-295) L 10/19/23 06:07 Lactic Acid 1.0 mmol/L (0.5-2.2) 10/19/23 06:07 Calcium 8.6 mg/dL (8.5-10.5) 10/19/23 06:07 Magnesium 1.9 mg/dL (1.7-2.3) 10/19/23 06:07 Total Bilirubin 0.6 mg/dL (0.15-1.2) 10/19/23 06:07 AST 13 U/L (0-32) 10/19/23 06:07 ALT 17 U/L (0-33) 10/19/23 06:07 Alkaline Phosphatase 72 U/L (35-105) 10/19/23 06:07 C-Reactive Protein 147.3 mg/L (0.0-4.9) H 10/19/23 06:07 Total Protein 7.3 g/dL (6.6-8.7) 10/19/23 06:07 Albumin 3.3 g/dL (3.5-5.2) L 10/19/23 06:07 Globulin 4.0 g/dL (1.3-4.6) 10/19/23 06:07 Procalcitonin 39.45 ng/mL (0-0.5) H 10/19/23 06:07 Urine Color Yellow (Yellow) 10/19/23 06:01 Urine Appearance Clear (CLEAR) 10/19/23 06:01 Urine pH 7 (5-7) 10/19/23 06:01 Ur Specific [place] 1.010 (1.005-1.030) 10/19/23 06:01 Urine Protein Neg (Negative) 10/19/23 06:01 Urine Glucose (UA) Norm (Normal) 10/19/23 06:01 Urine Ketones Negative (Negative) 10/19/23 06:01 Urine Blood Neg (Negative) 10/19/23 06:01 Urine Nitrate Negative (Negative) 10/19/23 06:01 Urine Bilirubin Neg (Negative) 10/19/23 06:01 Urine Urobilinogen 1 mg/dL (Negative) H 10/19/23 06:01 Ur Leukocyte Esterase Negative (Negative) 10/19/23 06:01 Urine Opiates Screen Positive ng/mL (Negative) H 10/19/23 06:01 Ur Barbiturates Screen Positive ng/mL (Negative) H 10/19/23 06:01 Ur Phencyclidine Scrn Negative ng/mL (Negative) 10/19/23 06:01 Ur Amphetamines Screen Positive ng/mL (Negative) H 10/19/23 06:01 U Benzodiazepines Scrn Negative ng/mL (Negative) 10/19/23 06:01 Urine Cocaine Screen Negative ng/mL (Negative) 10/19/23 06:01 U Marijuana (THC) Screen Positive ng/mL (Negative) H 10/19/23 06:01 Discharge Plan Discharge Patient Disposition: Xfer Short-Term Hosp Clinical Impression: Abscess of lower back, Polysubstance abuse Condition: Stable Referrals: Esther Lincoln DO [Primary Care Provider] - Sign Out Sign Out Data: Patient Sign Out occurred on 10/19/23 at 06:40. Patient's care was discussed, and care was transferred from Jacky Yepez MD to Juliocesar Greco DO. Coding Level of Care Code ED Radiation Monitor for Chg Fwd
[2023-10-19 06:12] LABS: Add Urine Microscopic? NO; Charge for UA Resulting for Rev
[2023-10-19 06:22] LABS: Erythrocyte Sedimentation Rate 56 mm/hr (0-15)
[2023-10-19 06:24] LABS: Basophils % 0.2 %; Eosinophils # 0.1 10^3/uL (0.0-0.8); Eosinophils % 0.9 %; Hematocrit 30.5 % (36-47); Lymphocytes # 1.9 10^3/uL (0.8-4.8); Lymphocytes % 13.9 %; Mean Corpuscular HGB Conc 32.8 g/dL (30-55); Mean Corpuscular Hemoglobin 29.2 pg (27-33); Mean Corpuscular Volume 88.9 fl (85-98); Mean Platelet Volume 8.7 fL (7.4-10.4); Monocytes % 7.6 %; Neutrophils # 10.47 10^3/uL (1.8-7.7); Neutrophils % 76.3 %; Nucleated Red Blood Cells % 0 %; Platelet Count 436 10^3/cmm (157-399); Red Blood Count 3.43 10^6/uL (3.85-5.65); White Blood Count 13.73 10^3/uL (3.29-11.43)
[2023-10-19 06:24] LABS: Urine Appearance Clear (CLEAR); Urine Color Yellow (Yellow)
[2023-10-19 06:25] LABS: Amphetamines Screen Urine Positive (Negative); Barbiturates Screen Urine Positive (Negative); Benzodiazepines Screen Urine Negative (Negative); Bilirubin Urine Neg (Negative); Blood Urine Neg (Negative); Cocaine Screen Urine Negative (Negative); Glucose Urine UA Norm (Normal); Ketones Urine Negative (Negative); Leukocyte Esterase Urine Negative (Negative); Nitrate Urine Negative (Negative); Opiate Screen Urine Positive (Negative); PCP Screen Urine Negative (Negative); Protein Urine Neg (Negative); THC Screen Urine Positive (Negative); Urobilinogen Urine 1 mg/dL (Negative); pH Urine 7 (5-7)
[2023-10-19] MEDS: ondansetron 2 mg/ML SDV 2 mL 4 MG IVP (06:26)
[2023-10-19 06:29] LABS: INR 1.05 (0.8-1.2)
[2023-10-19 06:30] LABS: Partial Thromboplastin Time 38.3 SECONDS (23.9-36.7)
--- NOTE | 2023-10-19 06:38 | PC.NURSE ---
Patient states that when she was being transported to [facility] via ambulance, that she had a bag with her. Upon inspection of the room after EMS left, there was no bag to be seen. This nurse contacted the assistant operator Ruby that transported the patient, who told this nurse that the only belongings that were transported with the patient were a coat, fuller and phone, all of which can be found in the patient's room. According to the assistant operator, the patient's bag were left at home in the living room by her bird cage. This nurse informed the patient of the conversation.
[2023-10-19 06:39] LABS: Alanine Aminotransferase 17 U/L (0-33); Albumin Level 3.3 g/dL (3.5-5.2); Alkaline Phosphatase 72 U/L (35-105); Anion Gap 15.1 (5-19); Aspartate Amino Transferase 13 U/L (0-32); Blood Urea Nitrogen 9 mg/dL (6-20); C Reactive Protein 147.3 mg/L (0.0-4.9); Calcium 8.6 mg/dL (8.5-10.5); Carbon Dioxide 21 mmol/L (22-29); Chloride 101 mmol/L (98-107); Glomerular Filtration Rate 167.6 mL/min (90-130); Glucose 130 mg/dL (65-115); Magnesium 1.9 mg/dL (1.7-2.3); Osmolality Calculated 278 mOsm/kg (285-295); Potassium 3.1 mmol/L (3.5-5.1); Sodium 134 mmol/L (136-145); Total Bilirubin 0.6 mg/dL (0.15-1.2); Total Protein 7.3 g/dL (6.6-8.7)
[2023-10-19 06:43] LABS: Procalcitonin 39.45 ng/mL (0-0.5)
--- NOTE | 2023-10-19 07:02 | CT_ITS ---
WS: [id number] CT LUMBAR SPINE with contrast HISTORY: recent lumbar spinal abscess drained TECHNIQUE: Contiguous 2.0 mm axial imaging performed from T12 through the mid sacral level. Bone and soft tissue windows reviewed. Sagittal and coronal reformats are submitted and reviewed. Omnipaque 35 0, 100 mL. DLP: 764.[address] scans at [facility] use at least one of these dose optimization techniques: automated e xposure control; mA and/or kV adjustment per patient size (includes targeted exams where dose is matc hed to clinical indication); or iterative reconstruction. COMPARISON: CT lumbar spine 07/12/2018, CT abdomen and pelvis 10/18/2023 and MRI lumbar spine 10/10/2023 Straightening and slight reversal of the normal lumbar lordosis. Reversal centered at L1-2. There are postsurgical changes of a laminectomy defect in the lumbar spine beginning at L3-S1. There is a larg e laminectomy defect from L3-S1. There is extensive soft tissue inflammation with fluid collections a nd air. The soft tissue collections are subcutaneous and extending through the laminectomy defect. Th e subcutaneous collection extends over a length of 10.5 cm. There is a small amount of air in the epi dural space at the L4 level. There is a more focal well-circumscribed collection with mildly enhancin g wall centered in the subcutaneous soft tissue at the L4-5 level but extending into the paraspinal s oft tissues. This was also described on the examination from 10/18/2013. This collection measures 3.6 x 2.6 cm Mild inflammatory soft tissue surrounding the L4 and L5 vertebral bodies. Asymmetric disc bulging at the L3-4 level with encroachment upon the thecal sac is similar to the prior study MRI. There is liga mentum flavum hypertrophy and disc encroachment upon the ventral thecal sac. The RIGHT piriformis muscle is partially included but appears larger than the LEFT and there is also some diffuse enhancement although no focal abscess is identified. IMPRESSION: 1. There is a large complex fluid collection with air and partial enhancement centered at the sabi ctomy defect from L3-S1 with extension into the subcutaneous soft tissues of the lumbar spine. These all may be postsurgical changes from the recent laminectomy and also abscess drainage. Recurrent absc ess is not excluded on this appearance. 2. There is increasing paravertebral soft tissue at L4-5 and a small amount of air in the prevertebr al space at L4-5. Cannot exclude paravertebral infection developing based on the amount of air althou gh also could be from debridement recently. 3. There is a more focal subcutaneous collection with wall enhancement centered at L4-5 disc level m easuring 3.6 x 2.6 cm. 4. Asymmetric enlargement with enhancement of the RIGHT piriformis muscle. Although no abscess is id entified these findings are suspicious for an acute myositis. Notified Juliocesar Greco DO at 10/19/2023 8:21 AM.
[2023-10-19] MEDS: morphine 4 mg/mL SDV 1 mL IVP ×4 (07:14→19:41)
[2023-10-19] MEDS: vancomycin 1,000 MG in sodium chloride 0.9% 250 ML 250 MG IV (07:44)
[2023-10-19] MEDS: iohexol 350 mg/mL 500 mL Btl (per mL) IV (07:47)
--- NOTE | 2023-10-19 10:06 | PC.PHAR ---
PT STATES NOTHING HAS CHANGED SINCE MED REC DONE YESTERDAY 10/18/23.
[2023-10-19] MEDS: ceFAZolin 2,000 MG in sodium chloride 0.9% (plus) 50 ML 100 MG IV (12:05)
[2023-10-19] MEDS: metoclopramide 5 mg/mL SDV 2 mL 10 MG IVP (12:48)
[2023-10-19] MEDS: LORazepam 2 mg Tablet PO (16:22)
[2023-10-19] MEDS: D5-NS 0.45% + KCL 20 mEq 20 MEQ/1,000 ML BAG 125 MEQ IV (18:11)
--- NOTE | 2023-10-19 19:34 | PC.NURSE ---
Bedside report given to dialysis chief equipment technician Marco. All questions and concerns addressed at time of report.
--- NOTE | 2023-10-19 20:33 | PC.NURSE ---
Given verbal order to give 4mg morphine IVP once per Dr Yepez prior to transfer of patient to [facility]
== END 2023-10-19 20:02 | disposition short-term general hospital (02) ==
PROVIDERS: Internal Medicine; Emergency Provider Family Medicine; PCP Family Medicine
DX: L02.212 Cutaneous abscess of back [any part, except buttock and flank] (principal); F19.10 Other psychoactive substance abuse, uncomplicated; I10 Essential (primary) hypertension; Z72.0 Tobacco use
CPT/HCPCS: 36415; 72132; 80053; 80306; 81003; 83605; 83735; 84145; 85025; 85610; 85651; 85730; 86140; 87040; 96365; 96366; 96375; 99285; J0690; J2270; J2405; J2765; J3370; J7050; Q9967